=== PATIENT | female | born 1950 | race Caucasian/White ===

== ENCOUNTER 2017-02-18 19:02 | Inpatient (IN) | payer OTHER, MEDICARE ==
[~2017-02-18] VITALS: Ht 166.4 cm; Wt 49.4 kg
--- NOTE | 2017-02-18 19:02 | NUR ---
ARRIVAL TIME 1900 AND REPORTED LAST SEEN NORMAL 25 MINS AGO
--- NOTE | 2017-02-18 19:05 | ED NEURO DEFICIT/STROKE ---
History of Present Illness General Chief Complaint: Altered Mental Status Stated Complaint: STROKE ALERT Source: EMS Exam Limitations: clinical condition Vital Signs & Intake/Output Vital Signs & Intake/Output Vital Signs Date Time Temp Pulse Resp B/P B/P Pulse O2 O2 Flow FiO2 Mean Ox Delivery Rate 02/188 98.3 82 18 124/76 97 Nasal 2.0L Cannula 02/188 98.4 85 20 120/78 95 Nasal 2.0L Cannula 02/188 98.0 89 18 122/80 97 Nasal 2.0L Cannula 02/19 2148 98.3 85 18 122/78 97 Nasal 2.0L Cannula 02/18 2138 96 Nasal 2.0L Cannula 02/18 2133 98.3 95 20 128/76 96 Nasal 2.0L Cannula 02/18 2118 98.3 83 20 124/76 96 Nasal 2.0L Cannula 02/18 2103 98.7 91 20 130/80 95 Nasal 2.0L Cannula 02/19 2048 97.8 80 20 130/78 95 Nasal 2.0L Cannula 02/18 2033 97.6 80 20 128/76 97 Nasal 2.0L Cannula 02/18 2018 97.6 79 18 120/76 97 Nasal 2.0L Cannula 02/18 2003 98.2 83 18 128/76 97 Nasal 2.0L Cannula 02/18 1945 97.3 90 18 134/59 97 Nasal 2.0L Cannula 02/18 1915 97.7 103 20 149/89 95 Nasal Cannula Allergies Coded Allergies: NO KNOWN ALLERGIES (06/03/11) Reconcile Medications Albuterol Sulfate (Ventolin Hfa) 90 MCG HFA.AER.AD 2 PUF INH AD PRN RESPIRATORY (Reported) Valsartan (Diovan) 40 MG TABLET 1 TAB PO DAILY HEART/BP (Reported) Triage Nurses Notes Reviewed? yes Onset: Abrupt Duration: minute(s): Timing: single episode today Severity: severe New Weakness: RUE, RLE, right facial Vision Problem? No Glaucoma? No Impaired Ability: difficult to speak, difficult to stand, difficult to walk Baseline: alert, oriented x 3 Associated Symptoms: weakness HPI: 66-year-old woman presents with acute onset of right sided weakness. Per the medics, 15-20 minutes prior to arrival, she developed sudden onset of right- sided arm and leg weakness, right facial droop, and difficulty speaking. Her daughter called the medics immediately. Upon arrival, the medics noted the above symptoms. Of note, she was unable to move her right arm and leg and seem lethargic and had trouble speaking. There is no recent trauma, operations, or other precipitating events. (SARAHI KING,MISHA Chavis) Past History Travel History Traveled to [place] past 21 day No Medical History Any Pertinent Medical History? see below for history Cardiovascular: pacemaker Respiratory: COPD Surgical History Surgical History: non-contributory Psychosocial History Who do you live with Patient/Self What is your primary language Luxembourgish Family History Hx Contributory? No (MISHA NGUYEN MD) Review of Systems Review of Systems Constitutional: Reports: no symptoms. EENTM: Reports: no symptoms. Respiratory: Reports: no symptoms. Cardiovascular: Reports: no symptoms. GI: Reports: no symptoms. Genitourinary: Reports: no symptoms. Musculoskeletal: Reports: no symptoms. Skin: Reports: no symptoms. Neurological/Psychological: Reports: no symptoms. Hematologic/Endocrine: Reports: no symptoms. Immunologic/Allergic: Reports: no symptoms. All Other Systems: Reviewed and Negative (MISHA NGUYEN MD) Physical Exam Physical Exam General Appearance: moderate distress Head: atraumatic, normal appearance Eyes: Bilateral: normal appearance, PERRL, EOMI, other (left gaze preference). Ears, Nose, Throat: normal ENT inspection Neck: normal inspection, supple, full range of motion Respiratory: normal breath sounds, chest non-tender, no respiratory distress Cardiovascular: regular rate/rhythm Gastrointestinal: normal bowel sounds, soft, non-tender, no organomegaly Back: normal inspection, normal range of motion Cranial Nerves: right facial droop with significant dysarthria, partial left gaze preference Coordination/Gait: 0/5 strength on right arm/leg Motor/Sensory: no sensory deficit Reflexes: 0: bicep (R), knee (R). 1+: bicep (L), knee (L). Core Measures CVA/TIA Diagnosis: Yes NIH Stroke Scale: Total 18 Date Last Known Well: 02/18/17 Time Last Known Well: 1830 Neurological S/S of CVA: Difficulty Speaking, Facial Hemiparesis, Incoherent Speech, Right Hemiparesis, Slurred Speech, Weakness of Limb Symptom Start Date: 02/18/17 Comment: pt given tpa as per protocol Severe Sepsis Present: No Septic Shock Present: No Bedside Dysphagia Screen Bedside Swallow Eval Done: No Result of Evaluation: Fail (dysarthria.needs formal eval) (SARAHI KING,MISHA Chavis) Progress Differential Diagnosis: Faith's Palsy, intracranial Hem., intracranial mass/tumor , stroke, subarachnoid Hem. Plan of Care: Orders Procedure Date/time Status Patient Data 02/18 2306 Active Admit to inpatient 02/18 2202 Active [place], Insertion/Removal/Asses 02/18 1939 Active CULTURE,URINE 02/18 1939 Active URINALYSIS 02/18 1939 Complete Weight 02/18 1931 Active [place] Coma Scale 02/18 1929 Active Intake & Output 02/18 1911 Active NIH Stroke Scale 02/19 1908 Active TROPONIN LEVEL 02/18 1906 Complete PARTIAL THROMBOPLASTIN TIME 02/18 1906 Complete PROTHROMBIN TIME 02/18 1906 Complete COMPREHENSIVE METABOLIC PANEL 02/18 1906 Complete CBC WITHOUT DIFFERENTIAL 02/18 1906 Complete TYPE & SCREEN (NOT X-MATCH) 02/18 1906 Complete EKG 02/18 1905 Active Current Medications Sig/Suzie Start time Last Medication Dose Stop Time Status Admin Alteplase, See Dose BOLUS ONE 02/18 1930 CAN Recombinant Insts (1) 02/18 1931 (Activase 100 MG Inj) Alteplase, See Dose ONCE ONE 02/18 1930 CAN Recombinant Insts (2) 02/18 1931 (Activase 100 MG Inj) Dose Instructions: (1)Alteplase, Recombinant (Activase 100 MG Inj): Administer over one minute (2)Alteplase, Recombinant (Activase 100 MG Inj): Infuse over 60 minutes Laboratory Tests 02/18/171941: Urine Color YEL, Urine Clarity CLEAR, Urine pH 6.0, Ur Specific [place] 1.020, Urine Protein NEG, Urine Ketones TRACE H, Urine Nitrite NEG, Urine Bilirubin NEG, Urine Urobilinogen 0.2, Ur Leukocyte Esterase NEG, Ur Microscopic SEDIMENT EXAMINED, Urine RBC 1-3, Ur Epithelial Cells RARE, Urine Hemoglobin TRACE-INTACT , Urine Glucose NEG 02/18/171929: Anion Gap 9, Estimated GFR 45 L, BUN/Creatinine Ratio 10.0, Glucose 88, Calcium 8.6, Total Bilirubin 0.6, AST 23, ALT 34, Alkaline Phosphatase 131 H, Troponin I < 0.01, Total Protein 6.6, Albumin 4.1, Globulin 2.5, Albumin/Globulin Ratio 1.6, PT 10.6, INR 1.01, APTT 32, CBC w Diff NO MAN DIFF REQ, RBC 4.54, MCV 97.3, MCH 31.9 H, RDW 13.7, MPV 8.4, Gran % 57.7, Lymphocytes % 30.5, Monocytes % 8.7 , Eosinophils % 2.3, Basophils % 0.8, Absolute Granulocytes 3.0, Absolute Lymphocytes 1.6, Absolute Monocytes 0.5, Absolute Eosinophils 0.1, Absolute Basophils 0, PUBS MCHC 32.8 L Microbiology 02/18 1942 URINE ROUT: Urine Culture - RECD Diagnostic Imaging: Viewed by Me: Radiology Read, CT Scan. Discussed w/RAD: Radiology Read, CT Scan. Radiology Impression: head ct... no acute disease, no bleed, head/neck angiogram... no clot. CXR Impression: no acute abnormality, no infiltrates, normal size heart, normal mediastinum Initial ED EKG: paced rhythm Comments: PATIENT: MIRIAM BELTRAN PRESENT AGE: 66 PATIENT ACCOUNT NO: [id number] : 49 LOCATION: [facility] ORDERING PHYSICIAN: MISHA NGUYEN MD SERVICE DATE: 02/18/17 EXAM TYPE: CAT - CT HEAD WO IV CONTRAST EXAMINATION: CT HEAD WITHOUT CONTRAST CLINICAL INFORMATION: Stroke alert. Stroke symptoms. COMPARISON: None TECHNIQUE: Contiguous axial imaging was performed from the skull base to vertex without intravenous administration of contrast. DLP: 776 mGy-cm FINDINGS: The study is limited by patient motion. Some of the images were repeated. No intracranial hemorrhage. No mass effect or midline shift. Lim-white differentiation is maintained without evidence of acute large vessel territory ischemia. Ventricles and sulci are within normal limits for age. Globes and orbits are normal. Partial opacification of the sphenoid sinus. No acute acute sinusitis. Skull and calvarial soft tissues are normal. IMPRESSION: The study is degraded by patient motion. No acute intracranial pathology. This critical result was discussed with MISHA NGUYEN MD by telephone at 02/18/2017 7:23 PM and it was ascertained that the content and urgency of the report was understood at the time of direct communication. In discussion with Dr. Nguyen, the patient has dense right hemiparesis. There is preserved lim-white differentiation within the left middle cerebral artery territory. DICTATED BY: GLENDY GRIJALVA MD DATE/TIME DICTATED:02/18/171918 ARCHITECTURE CONSULTANT:TORO DATE/TIME TRANSCRIBED:02/18/171918 CONFIDENTIAL, DO NOT COPY WITHOUT APPROPRIATE AUTHORIZATION. <Electronically signed in Other Vendor System> SIGNED BY: GLENDY GRIJALVA MD 1930 PATIENT: MIRIAM BELTRAN PRESENT AGE: 66 PATIENT ACCOUNT NO: [id number] : 49 LOCATION: [facility] ORDERING PHYSICIAN: MISHA NGUYEN MD SERVICE DATE: 02/18/17 EXAM TYPE: CAT - CT HEAD ANGIOGRAM; CT NECK ANGIOGRAM EXAMINATION: CT ANGIOGRAM CAROTID - NECK AND BRAIN CLINICAL INFORMATION: Stroke. COMPARISON: CT head today TECHNIQUE: Test bolus sequences followed by intravenous administration 120 mL of Optiray 350. Helical imaging was performed in the axial plane from the mediastinum to the vertex. The data was processed at the aeronautical engineering technologist workstation for generation of MIP sequences. No off site 3-D images performed. Workstation. FINDINGS: Normal examination. The origins of the great vessels are normal. The proximal subclavian arteries are normal. The origin of the right common carotid artery is normal. The right common carotid artery, carotid bifurcation and internal carotid artery is normal. The left common carotid artery, carotid bifurcation and internal carotid artery is normal. The origins of the vertebral arteries are normal. The vertebral arteries, basilar artery and their branches are normal. The [place] and cerebral arteries are normal. The CT of the brain is normal. No abnormal enhancement. The soft tissues of the neck are normal. There is emphysematous changes of lung. There is mild multilevel degenerative spondylosis of cervical spine. Small focus of mucosal thickening in the posterior left sphenoid sinus. IMPRESSION: Normal CTA of the head and neck DICTATED BY: RENAE MANNING MD DATE/TIME DICTATED:02/18/172104 ARCHITECTURE CONSULTANT:TORO DATE/TIME TRANSCRIBED:02/18/172104 CONFIDENTIAL, DO NOT COPY WITHOUT APPROPRIATE AUTHORIZATION. <Electronically signed in Other Vendor System> SIGNED BY: RENAE MANNING MD 02/18/172119 (SARAHI KING,MISHA Chavis) Departure Departure Disposition: STILL A PATIENT Condition: Stable Clinical Impression Primary Impression: CVA (cerebral vascular accident) Referrals: RENAE PARIS MD (PCP/Family) Departure Forms: Customer Survey General Discharge Information Comments 02/18/17, 19:14pm.... pt directly to ct scan... discussed with dr. arevalo... if negative bleed, will push tpa, then get angiogram to evaluate for clot...if clot , then pt to be transported [facility] 02/18/17, 19:24... discussed with [place] radiologist... no acute bleed. no cva visible. Admission Note Spoke With: JJ GURROLA MD Documentation of Exam: Documentation of any treatments & extenuating circumstances including Concerns Regarding Discharge (functional status, medication knowledge or non-compliance, living conditions, etc.) that warrant an admission rather than observation: pt with dense right sided hemipareisis, c/w cva... no clot seen on angiogram... pt received tpa per protocol.... discussed at length with family... pt to be admitted to icu. (SARAHI KING,MISHA Chavis) Critical Care Note Critical Care Note Critical Care Time: 30-74 min (SARAHI KING,MISHA Chavis)
--- NOTE | 2017-02-18 19:15 | NUR ---
66 F BIBA STROKE ALERT WITH SUDDEN ONSET RIGHT SIDED FACIAL DROOP, RIGHT ARM/LEG WEAKNESS LAST SEEN NORMAL APPROX 1840. NIHSS 9 AT TIME OF ARRIVAL. ARRIVES AWAKE AND ALERT, PUPILS CONSTRICTED AND WITH SLURRED/GARBLED SPEECH. DEMONSTRATES POOR FOCAL CONTROL BUT PUPILS APPEAR 1MM, EQUAL AND REACTIVE. NORMOTENSIVE FOR EMS WITH PACED RATE 70'S. ABLE TO FOLLOW COMMANDS AND RESPOND WITH SLURRED ONE WORD ANSWERS. ARRIVES W PREHOSP #18G IV TO [facility]. NO MEDS LPC. PT IMMEDIATELY TO CT SCAN ON ARRIVAL AND MET BY THIS RN AND DR MCCLAIN FOR EVALUATION. GUIAIC NEGATIVE ON RECTAL EXAM, SKIN APPEARS INTACT. WITHDRAWS FROM NOXIOUS STIMULI.
--- NOTE | 2017-02-18 19:31 | CT SCAN REPORT ---
EXAMINATION: CT HEAD WITHOUT CONTRAST CLINICAL INFORMATION: Stroke alert. Stroke symptoms. COMPARISON: None TECHNIQUE: Contiguous axial imaging was performed from the skull base to vertex without intravenous administration of contrast. DLP: 776 mGy-cm FINDINGS: The study is limited by patient motion. Some of the images were repeated. No intracranial hemorrhage. No mass effect or midline shift. Lim-white differentiation is maintained without evidence of acute large vessel territory ischemia. Ventricles and sulci are within normal limits for age. Globes and orbits are normal. Partial opacification of the sphenoid sinus. No acute acute sinusitis. Skull and calvarial soft tissues are normal. IMPRESSION: The study is degraded by patient motion. No acute intracranial pathology. This critical result was discussed with MISHA NGUYEN MD by telephone at 02/18/2017 7:23 PM and it was ascertained that the content and urgency of the report was understood at the time of direct communication. In discussion with Dr. Nguyen, the patient has dense right hemiparesis. There is preserved lim-white differentiation within the left middle cerebral artery territory.
--- NOTE | 2017-02-18 19:46 | NUR ---
URINE SAMPLE SENT TO LAB
[2017-02-18 19:48] LABS: ABSOLUTE BASOPHIL COUNT 0 /CUMM (0.0-0.2); ABSOLUTE EOSINOPHIL COUNT 0.1 /CUMM (0.0-0.7); ABSOLUTE LYMPH COUNT 1.6 /CUMM (1.2-3.4); ABSOLUTE MONOCYTE COUNT 0.5 /CUMM (0.10-0.60); BASOPHIL % 0.8 % (0.0-2.0); EOSINOPHIL % 2.3 % (0-5); GRANULOCYTE % 57.7 % (42.2-75.2); HEMATOCRIT 44.2 % (37-47); MEAN CORPUSCULAR HGB 31.9 PG (27.0-31.0); MEAN CORPUSCULAR HGB CONC 32.8 G/DL (33.0-37.0); MEAN CORPUSCULAR VOLUME 97.3 FL (81.0-99.0); MEAN PLATELET VOLUME 8.4 FL (7.4-10.4); PLATELET COUNT 185 /CUMM (130-400); RBC DISTRIBUTION WIDTH 13.7 % (11.5-14.5); RED BLOOD CELL CT 4.54 /CUMM (4.20-5.40); WHITE BLOOD CELL COUNT 5.3 /CUMM (4.8-10.8)
--- NOTE | 2017-02-18 19:48 | NUR ---
TPA BOLUS INITIATED.
--- NOTE | 2017-02-18 19:49 | NUR ---
TPA DRIP INITIATED PER EMAR.
[2017-02-18 19:55] LABS: PT 10.6 SEC (9.4-12.5); PTT 32 SEC (25-37)
--- NOTE | 2017-02-18 19:58 | NUR ---
PORTABLE XRAY AT BEDSIDE.
--- NOTE | 2017-02-18 20:14 | RADIOLOGY REPORT ---
EXAMINATION: XR PORTABLE CHEST CLINICAL INFORMATION: Stroke alert COMPARISON: 01/23/2014 TECHNIQUE: Portable frontal view of the chest was obtained. FINDINGS: Lungs are hyperexpanded but clear. No focal consolidation or mass. No pleural effusion or pneumothorax. Normal pulmonary vascularity. New 2-lead pacemaker seen with contiguous intact leads terminating over the expected location of the right atrium and right ventricle. Normal heart size. Osteopenia and degenerative changes of the spine and shoulders. IMPRESSION: No acute pulmonary disease.
--- NOTE | 2017-02-18 20:33 | NUR ---
PT ANSWERS CORRECTLY WHEN ASKED HER AGE, PT ALSO STATES HER DATE OF . PT IS ABLE TO FOLLOW COMMANDS TO OPEN/CLOSE EYES. PT ABLE TO OPEN/CLOSE LEFT FIST, NO MOVEMENT OF RIGHT UPPER EXTREMITY. PT FOLLOWS COMMAND TO LIFT LEFT LEG, NO MOVEMENT OF RIGHT LEG. PT ARTICULATES THE WORDS "MAMA", "TIP TOP" AND "BASEBALL".
--- NOTE | 2017-02-18 20:36 | NUR ---
PT TO CAT SCAN WITH THIS RN AND RN LUIS A.
[2017-02-18] MEDS ORDERED: DIOVAN40 MG PO (20:57)
[2017-02-18] MEDS ORDERED: VENTOLIN HFA18 GM INH (20:58)
--- NOTE | 2017-02-18 21:20 | CT SCAN REPORT ---
EXAMINATION: CT ANGIOGRAM CAROTID - NECK AND BRAIN CLINICAL INFORMATION: Stroke. COMPARISON: CT head today TECHNIQUE: Test bolus sequences followed by intravenous administration 120 mL of Optiray 350. Helical imaging was performed in the axial plane from the mediastinum to the vertex. The data was processed at the special procedure technologist workstation for generation of MIP sequences. No off site 3-D images performed. Workstation. FINDINGS: Normal examination. The origins of the great vessels are normal. The proximal subclavian arteries are normal. The origin of the right common carotid artery is normal. The right common carotid artery, carotid bifurcation and internal carotid artery is normal. The left common carotid artery, carotid bifurcation and internal carotid artery is normal. The origins of the vertebral arteries are normal. The vertebral arteries, basilar artery and their branches are normal. The [place] and cerebral arteries are normal. The CT of the brain is normal. No abnormal enhancement. The soft tissues of the neck are normal. There is emphysematous changes of lung. There is mild multilevel degenerative spondylosis of cervical spine. Small focus of mucosal thickening in the posterior left sphenoid sinus. IMPRESSION: Normal CTA of the head and neck
--- NOTE | 2017-02-18 21:32 | NUR ---
DR MCCLAIN IN TO EVAL PATIENT.
--- NOTE | 2017-02-18 21:33 | NUR ---
PT EXPERIENCING AN INCREASE IN TIREDNESS. WHEN ASKED AGE AND MONTH PT UNABLE TO ARTICULATE INTELLIGIBLE WORDS. PT CONTINUES TO FOLLOW COMMANDS TO OPEN/ CLOSE EYES. NO MOVEMENT OF RIGHT UPPER EXTREMITY AND RIGHT LOWER EXTREMITY. PT ABLE TO LIFT LEFT ARM WITH NO DRIFT NOTED. PT ALSO ABLE TO LIFT LEFT LEG.
--- NOTE | 2017-02-18 22:29 | NUR ---
HOUSESTAFF AT BEDSIDE FOR EVAL.
--- NOTE | 2017-02-18 23:34 | NUR ---
ASHANTI DARDEN'S DAUGHTER CAN BE CONTACTED AT [phone].
[2017-02-19] MEDS ORDERED: SYMBICORT 80-10.2 GM INH (00:08)
--- NOTE | 2017-02-19 00:44 | NUR ---
RESP AT BEDSIDE
--- NOTE | 2017-02-19 00:45 | History & Physical ---
VANESSASPRINGFIELD 02/19/17 0033: General Information and HPI MD Statement: I have seen and personally examined MIRIAM BELTRAN and documented this H&P. The patient is a 66 year old F who presented with a patient stated chief complaint of [right upper limb and lower limb weakness and right facial droop.]. History of Present Illness: 66 YO F smoker(1pack/day), PMH of COPD(not on home oxygen), rheumatic fever(in childhood), pacemaker in October 2014(possibly due to heart block), right knee surgery(arthroscopic) and fibroid uterus surgery presented to ED today with chief complaint of weakness of right side of body along with right facial droop. Information was obtained from patient's daughter, according to patient's daughter her mother was all right until this evening around 6:40 PM when she was washing dishes in the kitchen and the daughter heard and her mother is calling for an when she went to see her mother she was sitting in a chair and couldn't speak. The daughter noticed right facial droop and also noticed that her mother is trying to speak and trying totell something to her but she couldn't. Her daughter called 911 right away and brought to patient to ED. In the ED the patient was drowsy and isn't able to onset of the questions and was not able to move her right arm and leg. On rectal signs were stable and indeed patient was given 2 L of oxygen, after consulting with Dr. Guajardo patient received TPA. On physical examination the patient she was lying in bed, in mild distress, he was alert and oriented to person but couldn't articulate well as. She was able to understand us but couldn't articulate well. According to her daughter her mother was able to do all her IADLS and ADLs. At home she used to take blood pressure medication and inhaler for COPD. The daughter denied any chest pain, palpitation, nausea, vomiting, any previous history of TIA stroke dizziness, fever and chills. She is on 2 L of oxygen Heart mild distress Right-sided facial droop, bilateral constricted pupil minimally reactive to light CVS: R/R/R, S1 plus S2 +0 Lungs:CTA Abdomen: Normal bowel sounds, soft, nontender Neurological examination: Motor aphasia, able to follow commands, bilateral facial sensations intact, able to close both eyes, right facial droop, decreased power of right shoulder she was not able to show the tongue completely, passed bedside swallowing evaluation. Power 1/ 5 in right, 1/5 in right leg, equal vocal Babinski sign on the right side and negative on the left side. Bilateral pedal edema grade 1 CT scan of the head didn't show any bleed or visual ischemia. CT scan of the neck and and post CPAP didn't show any stenosis or bleeding X-ray chest didn't show any acute pathology. Creatinine 1.2, bicarbonate 31, ALP 131, troponin negative NIH score on arrival was 17 EKG single ventirculat paced rhythm, and apparently, Heart rate 104 Allergies/Medications Allergies: Coded Allergies: NO KNOWN ALLERGIES (06/03/11) Home Med list Albuterol Sulfate (Ventolin Hfa) 90 MCG HFA.AER.AD 2 PUF INH AD PRN RESPIRATORY (Reported) Budesonide/Formoterol Fumarate (Symbicort 80-4.5 Mcg Inhaler) 80 MCG-4.5 MCG/ ACTUATION HFA.AER.AD 2 PUF INH BID COPD (Reported) Valsartan (Diovan) 40 MG TABLET 1 TAB PO DAILY HEART/BP (Reported) Past History Travel History Traveled to [place] past 21 day No Medical History Cardiovascular: pacemaker Respiratory: COPD Surgical History Surgical History: non-contributory Past Family/Social History Psychosocial History ETOH Use: denies use Illicit Drug Use: denies illicit drug use Review of Systems Review of Systems Constitutional: Reports: no symptoms. EENTM: Reports: no symptoms. Cardiovascular: Reports: no symptoms. Respiratory: Reports: no symptoms. GI: Reports: no symptoms. Genitourinary: Reports: no symptoms. Musculoskeletal: Reports: no symptoms. Skin: Reports: no symptoms. Neurological/Psychological: Reports: unable to move lower ext, unable to move upper ext, weakness. Hematologic/Endocrine: Reports: no symptoms. Immunologic/Allergic: Reports: no symptoms. Exam & Diagnostic Data Last 24 Hrs of Vital Signs/I&O Vital Signs Date Time Temp Pulse Resp B/P B/P Pulse O2 O2 Flow FiO2 Mean Ox Delivery Rate 02/19 0035 97 Nasal 2.0L Cannula 02/19 0012 97.7 79 22 112/80 97 Nasal 2.0L Cannula 02/18 2348 98.1 88 18 118/80 97 Nasal 2.0L Cannula 02/18 2318 98.3 82 18 124/76 97 Nasal 2.0L Cannula 02/19 2248 98.4 85 20 120/78 95 Nasal 2.0L Cannula 02/18 2218 98.0 89 18 122/80 97 Nasal 2.0L Cannula 02/19 2148 98.3 85 18 122/78 97 Nasal 2.0L Cannula 02/18 2138 96 Nasal 2.0L Cannula 02/18 2133 98.3 95 20 128/76 96 Nasal 2.0L Cannula 02/18 2118 98.3 83 20 124/76 96 Nasal 2.0L Cannula 02/18 2103 98.7 91 20 130/80 95 Nasal 2.0L Cannula 02/19 2048 97.8 80 20 130/78 95 Nasal 2.0L Cannula 02/18 2033 97.6 80 20 128/76 97 Nasal 2.0L Cannula 02/18 2018 97.6 79 18 120/76 97 Nasal 2.0L Cannula 02/18 2003 98.2 83 18 128/76 97 Nasal 2.0L Cannula 02/18 1945 97.3 90 18 134/59 97 Nasal 2.0L Cannula 02/18 1915 97.7 103 20 149/89 95 Nasal Cannula Intake & Output 02/19 0800 02/19 0000 02/18 1600 Intake Total Output Total Balance Patient 103 lb Weight Weight Bed scale Measurement Method Physical Exam General Appearance Mild Distress Skin No Rashes Skin Temp/Moisture Exam: Warm/Dry HEENT Atraumatic, PERRLA, EOMI Neck Supple Cardiovascular Regular Rate Lungs Clear to Auscultation, Normal Air Movement Abdomen Normal Bowel Sounds, Soft Assessment/Plan Assessment: ASSESSMENT/PLAN: 66 YO F smoker(1pack/day), PMH of COPD(not on home oxygen), rheumatic fever(in childhood), pacemaker in October 2014(possibly due to heart block), right knee surgery(arthroscopic) and fibroid uterus surgery presented to ED today with chief complaint of weakness of right side of body along with right facial droop.On physical examination the patient she was lying in bed, in mild distress , he was alert and oriented to person but couldn't articulate well as. She was able to understand us but couldn't articulate well. According to her daughter her mother was able to do all her IADLS and ADLs. So we are going to assess her for:- Ischemic stroke post TPA Admit in ICU Vitals after every hour Nothing by mouth Forde's theter -Swallowing evaluation to prevent aspiration - PT/OT in the morning to start strokr rehabilitation to improve the clinical outcome. -Echo in the morning to rule out thrombus in the heart -Systolic blood pressure less than 180 mmHG to prevent cerebral bleed -EKG and troponin at 2am to rule out ACS -CBC, EKG, coagulation studies, BEP at 12/24/36 hours post TPA -check Lipid panel and start the patient on high dose statin -CT head 24 hours after TPA to rule out bleed. -MRI head (pacemaker info is in the chart) to see the infarct area. COPD Continue oxygen Continue Symbicort TRC nebulized As Ranked By This Provider Problem List: 1. CVA (cerebral vascular accident) Core Measures/Miscellaneous Acute Coronary Syndrome ACS Diagnosis: No Cerebrovascular Accident CVA/TIA Diagnosis: Yes NIH Stroke Scale: Total 13 Date Last Known Well: 02/18/17 Time Last Known Well: 1829 Neurological S/S of CVA: Difficulty Speaking, Facial Hemiparesis, Incoherent Speech, Right Hemiparesis, Slurred Speech, Weakness of Limb Symptom Start Date: 02/18/17 Bedside Swallow Eval Done: Yes Result of Evaluation: Fail (dysarthria.needs formal eval) Congestive Heart Failure CHF Diagnosis: No VTE (View Protocol) VTE Risk Factors: Age > 40, Smoking [facility] prophylaxis d/t: No contraindications No VTE Pharm Prophylaxis d/t: Medical contraindication VTE Diagnosis: No VTE Type: NONE VTE Confirmed by (Test): NONE Sepsis (View Protocol) Severe Sepsis Present: No Septic Shock Septic Shock Present: No Miscellaneous Documentation Attending Case Discussed With: JJ GURROLA MD Primary Care Physician: ERNAE PARIS MD Patient sees these Specialists Dr. Humberto Wise Level of Patient Care: Critical Care (CRI) Consults Needed: Consulting Specialty: Neurology Consulting Physician: Dr. Guajardo Reason for Consult: FESTUS Mace 02/19/17 0105: Past Family/Social History Family History Relations & Conditions if any DAUGHTER (malignant hyperthermia). Functional Ability ADLs Independent: dressing, eating, toileting, bathing. Ambulation: independent IADLs Independent: shopping, housework, finances, food prep, telephone, transportation , medication admin. Employment History Employment Retired Resident Review Statement Resident Statement: examined this patient, discussed with materials intern, agreed with materials intern, discussed with family, reviewed EMR data (avail), amended to note Other Findings: 66-year-old lady with past medical history of COPD(NOT on oxygen at home), smoker 1 pack a day, possible heart block status post pacemaker, who brought to the hospital with chief complaint of a seizure and right-sided weakness. Most of the information was obtained from patient's daughter states the patient was unable to articulate her words accurately. Around 6:40 PM patient's daughter noticed that the patient is unable to talk and sitting on the chair and not able to move her right side,with right-sided facial droop 911 was called and patient was brought here. In the ED patient was drowsy and unable to answer to question and move her right side of the body,With left-sided gaze. Vital signs were stable except O2 saturation 99% which resolved while putting the patient on 2 L oxygen. Initial CAT scan did not show any bleeding. After consulting with Dr. Guajardo patient received TPA. upon visiting the patient, Patient was able to answer the questions intermittently,However most of her words were uncomprehensible. Patient was alert and oriented to person. Looks tired and mildly distressed. Review of the system with daughter did not reveal any history of CVA, recent chest pain, nausea, vomiting, dizziness, palpitations. Before this incident patient was able to do all of her IADLS and ADL's. Apparently compliant with her blood pressure medication. Vital signs were stable(on 2 L oxygen) alert mild distress HEENT right sided facail droop, bilateral constricted pupil minimally reactive to Lights, left lataral gaze Cardiovascular Regular Rate, Normal S1, Normal S2 Lungs Clear to Auscultation, Normal Air Movement Abdomen Normal Bowel Sounds, Soft, No Tenderness, Neurological partial motor aphasia, able to follow commands, no decreased sensation in the face, able to close both of her e able to follow, and fairly, right-sided facial droop, decrease strenght of the right shoulder, does not cooperate to open her mouth or show her tongue completely, passes swallow evaluation at bedside, right upper extremity strength 1-2 out of 5, right lower extremity strength 1-2 out of 5, negative pelvis contests on the left side and equivocal test on the right side, Extremities bilateral pedal edema up to one third of the shins, Mild swelling of the right knee, non tender (History of right knee osteoarthritis with arthroscopy long time ago) CT scan of the head did not show any bleeding or visible ischemia, CT a of the neck and the head post CPAP did not show any stenosis or bleeding. CXR showed not acute pathology cr 1.2, HCO3 31, ALP 131, trops neg NIH score upon arrival was 17 EKG single ventirculat paced rhythm, and apparently, Heart rate 104 Assessment and plan #Ischemic CVA post TPA -Admit to ICU - vital signs every hour -forde/ NPO /swallow eval /PT OT in AM -goal SBP less than 180 mmhg -Echo cardiogram in AM -neuro consult in a.m. -ekg and troponing 2 am -Per TPA protocol CBC, EKG, coagulation studies, BEP at 12/24/36 hours post TPA -check Lipid panel and start the patient on high dose statin -CT head 24 hours after TPA -MRI head (pacemaker info is in the chart) #COPD -Continue O2 therapy, TRC nebs, continue Symbicort #Full code, Tylenol for pain, NPO, DVT prophylaxis is JJ WISE 02/19/17 0135: Attending MD Review Statement Attending Statement Attending MD Statement: examined this patient, discuss w/resident/PA/TECHNICAL SPECIALIST [employer]ET[employer], agreed w/resident/PA/TECHNICAL SPECIALIST [employer], reviewed EMR data (avail), reviewed images, amended to note Attending Assessment/Plan: CC: right sided weakness PMH : HTN, s/p pacemaker, rheumatic fever at the age of 14 years, smoker Patient was brought in by family for acute onset of right sided weakness. As per the EMS, she developed sudden onset of right-sided arm and leg weakness, right sided facial droop, and difficulty speaking, 20 minutes prior to arrival, while she was doing dishes. Daughter who was in the other room, came back to check on her mother when she found her mother on a chair with weakness. Then she called the EMS. There is no recent trauma, operations, or other precipitating events. Hx is limited as patient is aphasic, ROS is limited. Vitals: T max 98.7, HR on arrival 103, improved to 80s, RR 18-20, blood pressure 149/89 upon arrival stabilized around 120s/75 saturating 96% on 2 L nasal cannula On exam: Alert, partially aphasic, not oriented, mild respiratory distress, no JVD, right-sided gaze palsy, right facial droop, 2/5 strength RUL and RLL, reflexes +3 on right side, up growing plantars left-sided strength intact. Pupils equal 2 mm bilaterally reactive. cooperative, neck supple, mucosa dry, no dependent edema, no obvious skin rashes or inflammation CVS: S1-S2, RRR pacemaker left side. RS: Bilateral extensive wheezing. Abdomen: Soft, NT, ND, bowel sounds present. Labs: CBC unremarkable, sodium 140, potassium 4.8, chloride 100, bicarbonate 31, BUN 12, creatinine 1.2, and ag 9, glucose 88, calcium 8.6, AST 23, ALT 34, bilirubin 0.6, alkaline phosphatase 131, troponin less than 0.01, albumin 4.1, INR 1.01 UA unremarkable U tox pending CT chest head: The study is degraded by patient motion. No acute intracranial pathology. CXR: No acute pulmonary disease. CT HEAD ANGIOGRAM; CT NECK ANGIOGRAM: Normal CTA of the head and neck EKG: Ventricular paced rhythm A and P 66-year-old female with current smoker and history of hypertension S/P pacemaker (unclear etiology), was brought in by family for acute onset of right sided weakness. Symptoms 20 minutes prior to arrival to ER with right-sided arm and leg weakness, right sided facial droop, and difficulty speaking. NIH stroke scale was 17. Intermediate CT head was obtained, which was negative for bleed. Patient was given TPA. Neurologist was called from ER who suggested to the evaluate with CTA head and neck after TPA, if there is clot then transferred to [place]. CTA was unremarkable as mentioned above. After TPA NIH stroke scale improved to 15. Patient being admitted to ICU for further management of acute ischemic stroke S/P TPA. + Right-sided hemiparalysis secondary to acute ischemic stroke + History of HTN, smoking + s/p pacemaker ventricular paced rhythm - Admit to ICU - Follow TPA protocol for blood pressure monitoring every 15 hour for first 2 hours then every 30 minutes for next 6 hours followed by hourly - Continue gentle IV hydration, if blood pressure trending up DC IV fluids, when necessary labetalol if required : Maintain blood pressure below 180/105 - Hold off aspirin for now - Neurochecks every 2 hours - If any deterioration in neurological status, stat CT scan - Add lipid profile but the sample in lab - Bedside swallow evaluation and formal official swallow evaluation - Nothing by mouth, continue Forde catheter, watch for any bleeding - Neurologic consult in AM - 2-D echocardiogram in a.m. - Continue telemetry monitoring - Scheduled and when necessary nebulization with albuterol - ? MRI in a.m., according to neurology opinion - Accu-Cheks, check hemoglobin A1c - OT PT evaluation in a.m. - Trend EKG and troponin - Chest x-ray repeat in a.m. to rule out any aspiration - Obtain record from the cardiology office regarding pacemaker - DVT prophylaxis with Alps - Adequate pain control
--- NOTE | 2017-02-19 00:55 | NUR ---
PT REMAINS ALERT. PT ABLE TO FOLLOW COMMANDS TO OPEN/CLOSE EYES AND OPEN/CLOSE BOTH RIGHT AND LEFT HAND. PT ABLE TO LIFT LEFT ARM WITHOUT ANY DRIFT. PT UNABLE TO LIFT RIGHT ARM. PT LIFTS LEFT AND RIGHT LEG. PT UNABLE TO ARTICULATE INTELLIGIBLE WORDS AT THIS TIME.
--- NOTE | 2017-02-19 01:22 | NUR ---
REPORT GIVEN TO SUSY OCAMPO ON CRITICAL CARE.
--- NOTE | 2017-02-19 01:35 | Admission Certification ---
Admission Certification Certification Statement - As attending physician, I certify that at the time of - admission, based on clinical presentation, severity of - symptoms, need for further diagnostic testing and - therapeutic interventions, and risk of adverse outcomes - without in-hospital treatment, in my clinical assessment, - this patient requires an acute hospital stay for a minimum - of two nights or longer. I have also considered psychsocial - factors such as support system, advanced age, financial - issues, cognitive issues, and failed out-patient treatments, - past re-admission history, safety of patient, and lack of - compliance as applicable. Specific rationale supporting this admission is: acute CVA
--- NOTE | 2017-02-19 01:42 | NUR ---
PT GOING TO ROOM 108
--- NOTE | 2017-02-19 03:48 | NUR ---
PT RECEIVED FROM ER AWAKE, NORIEGA EXCEPT R ARM, ABLE TO DO WEAK HAND GRASP, R LEG WEAKER THAN LEFT,CELINA JONES GARBLED AT TIMES, ABLE TO SAY NAME AND BIRTHDATE.SKIN INTACT, FLORES IN PLACE.NASAL O2 AT 2L MONITOR PACING
--- NOTE | 2017-02-19 07:33 | NUR ---
PT EASILY AWAKENED ANSWERS SOME QUESTIONS APPROPRIATELY BUT ONLY SPEAKS CLEARLY WITH ON WORD ANSWER, IF SHE TRIES A SENTENCE HER SPEECH IS GARBLED, CONFUSED TO DATE AND SOME QUESTIONS. MOVING ALL EXTREMITIES TO COMMAND R SIDE WEAKNESS. DENIES PAIN. NASAL O2 AT 2LO2 SAT 97-98% MONITOR PACING
[2017-02-19 08:00] VITALS: BP 108/60
--- NOTE | 2017-02-19 08:09 | NUR ---
Physical Therapy - Patient received TPA bolus 12 hours ago in the ED. Will attempt to mobilize the patient after 24 hours of receiving the TPA and the CT is negative for a bleed. Will follow with PT evaluation once appropriate for mobilization.
--- NOTE | 2017-02-19 08:26 | Cons- CRCU ---
ZACHERY KING,[facility] 02/19/17 0825: General Information and HPI Consulting Request Date of Consult: 02/19/17 Requested By: MD BHAVYA GURROLA Reason for Consult: s/p tpa for CVA Source of Information: patient, family Exam Limitations: no limitations History of Present Illness: This is a 66-year-old lady with past medical history of COPD(NOT on oxygen at home), smoker 1 pack a day, rheumatic fever during childhood, possible heart block status post pacemaker, was BIBA with acute onset of right isded weakness, right facial droop and dysarthia. Pt was noted to still have the right side focal neurological deficits during ED evaluation, rcvd tpa (was well tithin the window). Pt was the then transferred to ICU for post tpa stroke management. Allergies/Medications Allergies: Coded Allergies: NO KNOWN ALLERGIES (06/03/11) Home Med List: Albuterol Sulfate (Ventolin Hfa) 90 MCG HFA.AER.AD 2 PUF INH AD PRN RESPIRATORY (Reported) Budesonide/Formoterol Fumarate (Symbicort 80-4.5 Mcg Inhaler) 80 MCG-4.5 MCG/ ACTUATION HFA.AER.AD 2 PUF INH BID COPD (Reported) Valsartan (Diovan) 40 MG TABLET 1 TAB PO DAILY HEART/BP (Reported) Review of Systems Review of Systems Constitutional: Reports: see HPI. Past History Travel History Traveled to [place] past 21 day No Medical History Cardiovascular: pacemaker Respiratory: COPD Surgical History Surgical History: non-contributory Family History Relations & Conditions If Any: DAUGHTER (malignant hyperthermia). Psychosocial History Smoking Status: Current Everyday Smoker ETOH Use: denies use Illicit Drug Use: denies illicit drug use Functional Ability ADLs Independent: dressing, eating, toileting, bathing. Ambulation: independent IADLs Independent: shopping, housework, finances, food prep, telephone, transportation , medication admin. Employment History Employment: Retired Exam & Diagnostic Data Last 24 Hrs of Vital Signs/I&O Vital Signs Date Time Temp Pulse Resp B/P B/P Pulse O2 O2 Flow FiO2 Mean Ox Delivery Rate 02/19 1200 99 Nasal 1.0L Cannula 02/19 0830 Nasal 2.0L Cannula 02/19 0817 96 Nasal 2.0L Cannula 02/19 0800 96.9 73 15 108/60 97 Nasal 2.0L Cannula 02/19 0800 95 Nasal 2.0L Cannula 02/19 0400 97 Nasal 2.0L Cannula 02/19 0200 96 Nasal 2.0L Cannula 02/19 0118 97.2 74 20 110/78 97 Nasal 2.0L Cannula 02/19 0048 97.7 77 20 110/68 97 Nasal 2.0L Cannula 02/19 0035 97 Nasal 2.0L Cannula 02/19 0012 97.7 79 22 112/80 97 Nasal 2.0L Cannula 02/18 2348 98.1 88 18 118/80 97 Nasal 2.0L Cannula 02/18 2318 98.3 82 18 124/76 97 Nasal 2.0L Cannula 02/18 2248 98.4 85 20 120/78 95 Nasal 2.0L Cannula 02/18 2218 98.0 89 18 122/80 97 Nasal 2.0L Cannula 02/18 2148 98.3 85 18 122/78 97 Nasal 2.0L Cannula 02/18 2138 96 Nasal 2.0L Cannula 02/18 2133 98.3 95 20 128/76 96 Nasal 2.0L Cannula 02/18 2118 98.3 83 20 124/76 96 Nasal 2.0L Cannula 02/18 2103 98.7 91 20 130/80 95 Nasal 2.0L Cannula 02/19 2048 97.8 80 20 130/78 95 Nasal 2.0L Cannula 02/18 2033 97.6 80 20 128/76 97 Nasal 2.0L Cannula 02/18 2018 97.6 79 18 120/76 97 Nasal 2.0L Cannula 02/18 2003 98.2 83 18 128/76 97 Nasal 2.0L Cannula 02/18 194 97.3 90 18 134/59 97 Nasal 2.0L Cannula 02/18 191 97.7 103 20 149/89 95 Nasal Cannula Intake & Output 02/19 1600 02/19 0800 02/19 0000 Intake Total 375 Output Total 1010 Balance -635 Intake, IV 375 Output, Urine 1010 Patient 50.434 kg 49.895 kg 46.5 kg Weight Weight Bed scale Bed scale Measurement Method Physical Exam General Appearance: alert, awake Head: atraumatic, normal appearance Cardiovascular: regular rate/rhythm Extremities: normal capillary refill, normal range of motion, no edema Neurologic/Psych: awake, alert, oriented x 3, right facial droop noted. moderate dysarthia noted, however improved compared to pre tpa (daughter confirmed the interval changes). R UE strength 2/5, compared to 5/5 on left side. Left LE strength 3/5 compared to 5/5 on left side. Sensation is intact on facial areas and u/l EXTREMITIES B/L. Last 48 Hrs of Labs/Angel: Laboratory Tests 02/19/17 0810: Urinalysis LIGHT H, Urine Color YEL, Urine Clarity HAZY H, Urine pH 6.0, Ur Specific Weld 1.015, Urine Protein TRACE H, Urine Ketones NEG, Urine Nitrite NEG, Urine Bilirubin NEG, Urine Urobilinogen 0.2, Ur Leukocyte Esterase NEG, Ur Microscopic SEDIMENT EXAMINED, Urine RBC 50-75 H, Urine WBC RARE, Ur Epithelial Cells RARE, Urine Mucus RARE, Urine Hemoglobin LARGE H, Urine Glucose NEG 02/19/17 0800: Anion Gap 8, Estimated GFR > 60, Glucose 83, Calcium 8.3 L, Phosphorus 4.6 H, Magnesium 2.0, Total Bilirubin 0.7, AST 20, ALT 36, Albumin 3.7, TSH Pending, PT 10.9, INR 1.04, APTT 29, CBC w Diff NO MAN DIFF REQ, RBC 4.28, MCV 97.9, MCH 32.4 H, RDW 13.7, MPV 8.7, Gran % 66.1, Lymphocytes % 23.6, Monocytes % 7.4, Eosinophils % 2.4, Basophils % 0.5, Absolute Granulocytes 3.4, Absolute Lymphocytes 1.2, Absolute Monocytes 0.4, Absolute Eosinophils 0.1, Absolute Basophils 0, PUBS MCHC 33.1 02/19/17 0248: Troponin I 0.02 02/18/17 1942: Urine Opiates Screen < 100.00, Methadone Screen < 40, Barbiturate Screen < 60, Ur Phencyclidine Scrn < 6.00, Amphetamines Screen < 100, U Benzodiazepines Scrn < 85, Urine Cocaine Screen < 50, Urine Cannabis Screen < 5.00, Urine Color YEL, Urine Clarity CLEAR, Urine pH 6.0, Ur Specific Weld 1.020, Urine Protein NEG, Urine Ketones TRACE H, Urine Nitrite NEG, Urine Bilirubin NEG, Urine Urobilinogen 0.2, Ur Leukocyte Esterase NEG, Ur Microscopic SEDIMENT EXAMINED, Urine RBC 1-3, Ur Epithelial Cells RARE, Urine Hemoglobin TRACE-INTACT, Urine Glucose NEG 02/18/17 1930: Anion Gap 9, Estimated GFR 45 L, BUN/Creatinine Ratio 10.0, Glucose 88, Calcium 8.6, Total Bilirubin 0.6, AST 23, ALT 34, Alkaline Phosphatase 131 H, Troponin I < 0.01, Total Protein 6.6, Albumin 4.1, Globulin 2.5, Albumin/Globulin Ratio 1.6, Triglycerides 64, Cholesterol 208 H, LDL Cholesterol, Calc 100, HDL Cholesterol 96 H, Cholesterol/HDL Ratio 2, PT 10.6, INR 1.01, APTT 32, CBC w Diff NO MAN DIFF REQ, RBC 4.54, MCV 97.3, MCH 31.9 H, RDW 13.7, MPV 8.4, Gran % 57.7, Lymphocytes % 30.5, Monocytes % 8.7, Eosinophils % 2.3, Basophils % 0.8, Absolute Granulocytes 3.0, Absolute Lymphocytes 1.6, Absolute Monocytes 0.5, Absolute Eosinophils 0.1, Absolute Basophils 0, PUBS MCHC 32.8 L Diagnostic Data EKG Results Ventricular paced rythm Other Results SERVICE DATE: 02/18/17 EXAM TYPE: CAT - CT HEAD WO IV CONTRAST EXAMINATION: CT HEAD WITHOUT CONTRAST CLINICAL INFORMATION: Stroke alert. Stroke symptoms. COMPARISON: None TECHNIQUE: Contiguous axial imaging was performed from the skull base to vertex without intravenous administration of contrast. DLP: 776 mGy-cm FINDINGS: The study is limited by patient motion. Some of the images were repeated. No intracranial hemorrhage. No mass effect or midline shift. Ilm-white differentiation is maintained without evidence of acute large vessel territory ischemia. Ventricles and sulci are within normal limits for age. Globes and orbits are normal. Partial opacification of the sphenoid sinus. No acute acute sinusitis. Skull and calvarial soft tissues are normal. IMPRESSION: The study is degraded by patient motion. No acute intracranial pathology. This critical result was discussed with MISHA NGUYEN MD by telephone at 02/18/2017 7:23 PM and it was ascertained that the content and urgency of the report was understood at the time of direct communication. In discussion with Dr. Nguyen, the patient has dense right hemiparesis. There is preserved lim-white differentiation within the left middle cerebral artery territory. DICTATED BY: GLENDY GRIJALVA MD DATE/TIME DICTATED:02/18/171918 EDGE BEADER:TETE DATE/TIME TRANSCRIBED:02/18/171918 CONFIDENTIAL, DO NOT COPY WITHOUT APPROPRIATE AUTHORIZATION. <Electronically signed in Other Vendor System> SIGNED BY: GLENDY GRIJALVA MD 1930 PATIENT: MIRIAM BELTRAN PRESENT AGE: 66 PATIENT ACCOUNT NO: [id number] : 49 LOCATION: [facility] ORDERING PHYSICIAN: MISHA NGUYEN MD SERVICE DATE: 02/18/17 EXAM TYPE: CAT - CT HEAD ANGIOGRAM; CT NECK ANGIOGRAM EXAMINATION: CT ANGIOGRAM CAROTID - NECK AND BRAIN CLINICAL INFORMATION: Stroke. COMPARISON: CT head today TECHNIQUE: Test bolus sequences followed by intravenous administration 120 mL of Optiray 350. Helical imaging was performed in the axial plane from the mediastinum to the vertex. The data was processed at the neurology technologist workstation for generation of MIP sequences. No off site 3-D images performed. Workstation. FINDINGS: Normal examination. The origins of the great vessels are normal. The proximal subclavian arteries are normal. The origin of the right common carotid artery is normal. The right common carotid artery, carotid bifurcation and internal carotid artery is normal. The left common carotid artery, carotid bifurcation and internal carotid artery is normal. The origins of the vertebral arteries are normal. The vertebral arteries, basilar artery and their branches are normal. The [place] and cerebral arteries are normal. The CT of the brain is normal. No abnormal enhancement. The soft tissues of the neck are normal. There is emphysematous changes of lung. There is mild multilevel degenerative spondylosis of cervical spine. Small focus of mucosal thickening in the posterior left sphenoid sinus. IMPRESSION: Normal CTA of the head and neck DICTATED BY: RENAE MANNING MD DATE/TIME DICTATED:02/18/172104 SERVICE DATE: 02/18/17 EXAM TYPE: CAT - CT HEAD ANGIOGRAM; CT NECK ANGIOGRAM EXAMINATION: CT ANGIOGRAM CAROTID - NECK AND BRAIN CLINICAL INFORMATION: Stroke. COMPARISON: CT head today TECHNIQUE: Test bolus sequences followed by intravenous administration 120 mL of Optiray 350. Helical imaging was performed in the axial plane from the mediastinum to the vertex. The data was processed at the neurology technologist workstation for generation of MIP sequences. No off site 3-D images performed. Workstation. FINDINGS: Normal examination. The origins of the great vessels are normal. The proximal subclavian arteries are normal. The origin of the right common carotid artery is normal. The right common carotid artery, carotid bifurcation and internal carotid artery is normal. The left common carotid artery, carotid bifurcation and internal carotid artery is normal. The origins of the vertebral arteries are normal. The vertebral arteries, basilar artery and their branches are normal. The [place] and cerebral arteries are normal. The CT of the brain is normal. No abnormal enhancement. The soft tissues of the neck are normal. There is emphysematous changes of lung. There is mild multilevel degenerative spondylosis of cervical spine. Small focus of mucosal thickening in the posterior left sphenoid sinus. IMPRESSION: Normal CTA of the head and neck DICTATED BY: RENAE MANNING MD Assessment/Plan Impression/Plan: This is a 66-year-old lady with past medical history of COPD(NOT on oxygen at home), smoker 1 pack a day, rheumatic fever during childhood, possible heart block status post pacemaker, was BIBA with acute onset of right isded weakness, right facial droop and dysarthia. Pt was noted to still have the right side focal neurological deficits during ED evaluation, rcvd tpa (was well tithin the window). Initial CT head was unremarkable for any acute ischemic changes Pt was the then transferred to ICU for post tpa stroke management. Impression s/p tpa 2/2 to CVA Hx if pacemaker placement Hx of COPD Hx of tobacco use Plan * Continue ICU monitoring for at least 24 hrs from tpa administration * Continue BP monitoring q 1hr with goal of below 180/105 . Consider Labetalol IV or Nicardipine for elevated BP. Refrain from nitrates. * Refrain from sedative agents as this would affect neuro checks * Neuro checks q 1hr, CT head if worsening neuro exam findings. * SCD for DVT, no antiplatelet or anticoagulation for the first 24 hrs of tpa. * Repeat CBC/coags, BEP at 8pm (24 hr) * Trops non elevated * No arterial sticks or venipuncture of non-compressible sites in the first 24 hours * Accucheks for glucose q4-6 h, watch for hyperglycemia (Goal less than 180) * Awaiting medtronik interrogation for possible arrythmias prior to nuerological symptoms * Await echo results and cardiology input * Awaiting further neurology input * Advanced diet to mechanical soft with thin liquids per fromal swallo eval * OT/PT pending. Consult Acknowledgment - Thank you for your consult request. MADHU FARFAN MD 02/19/17 0851: Assessment/Plan Other Findings/Comments: Madhu Olson M.D. have examined this patient, reviewed available EMR data, personally reviewed images, discussed with resident/PA/DIRECTOR OF TRAUMA, discussed management plan with housestaff and nursing staff, discussed managment plan all of healthcare providers, discussed management plan with patient and/or family, agreed with resident/PA/DIRECTOR OF TRAUMA. The past history and parts of the chart have been autopopulated. 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
--- NOTE | 2017-02-19 08:47 | NUR ---
@0800-PT DROWSY/AROUS. R SLIGHT FACIAL DROOP CONT. NORIEGA WITH WEAKER TO R SIDE NOTED. + HAND GRASPS. PT FOLLOWS COMMANDS. + DRIFT TO ROMA. ONE WORD ANSWERS ONLY. PUPILS EQUAL AND REACTIVE. CONT NIH Q1HR. MRI OF HEAD ORD. CONT ON 2LNC. INSPIRTORY AND EXP WHEEZES NOTED, INCREASED R SIDE. NEBS PER RT. DENIES SOB. O2SAT 97%. PACING HR 70S. PACER NOTED TO W. BP STABLE 108/60. MANUAL BPS ONLY DUE TO S/P TPA 02/18/17. REPEAT EKG AND LABS DONE AT 0800. PT REMAINS NPO PENDING SWALLOW EVAL. ABD SOFT, +BS. LAST BM DATE UNKNOWN AT THIS TIME. FLORES IN PLACE WITH 20-30ML HOURLY. UA SENT THIS AM ORD. SKIN INTACT WITH POOR HYGIENE TO FEET NOTED. BOTTOM OF FEET SOILED WITH DRY BLACK MATERIAL. WILL PROVIDE HYGIENE THIS AM. ALPS REMAIN OFF AT THIS TIME DUE TO TPA AND WILL FOLLWUP WITH HOUSESTAFF REGARDING ALPS ORDER. IVF NS INFUSING AT 75ML/HR. @0830-ECHO BEING DONE AT BEDSIDE. CONT TO MONITOR CLOSELY. CALL [facility] WITHIN REACH.
[2017-02-19 08:54] LABS: ABSOLUTE BASOPHIL COUNT 0 /CUMM (0.0-0.2); ABSOLUTE EOSINOPHIL COUNT 0.1 /CUMM (0.0-0.7); ABSOLUTE GRANULOCYTE CT 3.4 /CUMM (1.4-6.5); ABSOLUTE LYMPH COUNT 1.2 /CUMM (1.2-3.4); ABSOLUTE MONOCYTE COUNT 0.4 /CUMM (0.10-0.60); BASOPHIL % 0.5 % (0.0-2.0); EOSINOPHIL % 2.4 % (0-5); GRANULOCYTE % 66.1 % (42.2-75.2); HEMATOCRIT 41.9 % (37-47); MEAN CORPUSCULAR HGB 32.4 PG (27.0-31.0); MEAN CORPUSCULAR HGB CONC 33.1 G/DL (33.0-37.0); MEAN CORPUSCULAR VOLUME 97.9 FL (81.0-99.0); MEAN PLATELET VOLUME 8.7 FL (7.4-10.4); PLATELET COUNT 152 /CUMM (130-400); RBC DISTRIBUTION WIDTH 13.7 % (11.5-14.5); RED BLOOD CELL CT 4.28 /CUMM (4.20-5.40); WHITE BLOOD CELL COUNT 5.2 /CUMM (4.8-10.8)
[2017-02-19 09:08] LABS: PT 10.9 SEC (9.4-12.5); PTT 29 SEC (25-37)
--- NOTE | 2017-02-19 10:35 | NUR ---
@0915-92/50. URINE OUTPUT 10ML FOR THE HOUR. NS 500ML BOLUS ADMINISTERED AT THIS TIME.
--- NOTE | 2017-02-19 10:36 | NUR ---
@1030-BP REMAINS 94/60. URINE OUTPUT 30ML FOR THE HOUR. ADDITIONAL 500ML NS BOLUS AT THIS TIME. CONT TO MONITOR .
--- NOTE | 2017-02-19 11:51 | RADIOLOGY REPORT ---
EXAMINATION: XR PORTABLE CHEST CLINICAL INFORMATION: CVA. Desaturation. COMPARISON: Chest done on 02/18/2017. TECHNIQUE: Portable frontal view of the chest was obtained. FINDINGS: Both lung bases are symmetrically expanded and appear clear. The cardiomediastinal silhouette is within normal limits. Dual-lead pacer device is noted, intact. No pleural effusion. No significant change. IMPRESSION: No acute cardiopulmonary disease, unchanged since 02/18/2017.
--- NOTE | 2017-02-19 12:12 | Cons- Cardiology ---
General Information and HPI Consulting Request Date of Consult: 02/19/17 Requested By: JJ GURROLA MD Reason for Consult: Stroke syndrome. Source of Information: patient, family, old records Exam Limitations: confusion, poor historian History of Present Illness: Mrs. Sharonda Trejo is a 66-year-old female with a long-standing history of tobacco use (50+ pack-year), COPD, hypertension, and conduction disease (s/p [employer] Sensia DR pacemaker implanted 11/22/2014) who presented to the ED last evening the acute onset of altered mental status, slurred speech, right hemiparesis, and right facial droop who received thrombolytic therapy, given the time course of events. According to her daughter, her mother had gone into the kitchen at around 7 p.m. and when her daughter heard her mother's voice, went into the kitchen to find her mother seated at the kitchen table, confused, with garbled speech, right facial droop and the inability to move her right side. Her daughter, suspecting a stroke, immediately called 911 with first responders arriving within 5 minutes. Allergies/Medications Allergies: Coded Allergies: NO KNOWN ALLERGIES (06/03/11) Home Med List: Albuterol Sulfate (Ventolin Hfa) 90 MCG HFA.AER.AD 2 PUF INH AD PRN RESPIRATORY (Reported) Budesonide/Formoterol Fumarate (Symbicort 80-4.5 Mcg Inhaler) 80 MCG-4.5 MCG/ ACTUATION HFA.AER.AD 2 PUF INH BID COPD (Reported) Valsartan (Diovan) 40 MG TABLET 1 TAB PO DAILY HEART/BP (Reported) Review of Systems Review of Systems: A 14 point system review was attempted, but unobtainable given patient's confusion and speech difficulty. Past History Travel History Traveled to [place] past 21 day No Medical History Cardiovascular: pacemaker Respiratory: COPD Surgical History Surgical History: non-contributory Family History Relations & Conditions If Any: DAUGHTER (malignant hyperthermia). Psychosocial History Smoking Status: Current Everyday Smoker ETOH Use: denies use Illicit Drug Use: denies illicit drug use Functional Ability ADLs Independent: dressing, eating, toileting, bathing. Ambulation: independent IADLs Independent: shopping, housework, finances, food prep, telephone, transportation , medication admin. Employment History Employment: Retired Exam & Diagnostic Data Vital Signs and I&O Vital Signs Date Time Temp Pulse Resp B/P B/P Pulse O2 O2 Flow FiO2 Mean Ox Delivery Rate 02/19 0830 Nasal 2.0L Cannula 02/19 0817 96 Nasal 2.0L Cannula 02/19 0800 96.9 73 15 108/60 97 Nasal 2.0L Cannula 02/19 0800 95 Nasal 2.0L Cannula 02/19 0400 97 Nasal 2.0L Cannula 02/19 0200 96 Nasal 2.0L Cannula 02/19 0118 97.2 74 20 110/78 97 Nasal 2.0L Cannula 02/19 0048 97.7 77 20 110/68 97 Nasal 2.0L Cannula 02/19 0035 97 Nasal 2.0L Cannula 02/19 0012 97.7 79 22 112/80 97 Nasal 2.0L Cannula 02/18 2348 98.1 88 18 118/80 97 Nasal 2.0L Cannula 02/18 2318 98.3 82 18 124/76 97 Nasal 2.0L Cannula 02/19 2248 98.4 85 20 120/78 95 Nasal 2.0L Cannula 02/18 2218 98.0 89 18 122/80 97 Nasal 2.0L Cannula 02/19 2148 98.3 85 18 122/78 97 Nasal 2.0L Cannula 02/18 2138 96 Nasal 2.0L Cannula 02/18 2133 98.3 95 20 128/76 96 Nasal 2.0L Cannula 02/18 2118 98.3 83 20 124/76 96 Nasal 2.0L Cannula 02/18 2103 98.7 91 20 130/80 95 Nasal 2.0L Cannula 02/19 2048 97.8 80 20 130/78 95 Nasal 2.0L Cannula 02/18 2033 97.6 80 20 128/76 97 Nasal 2.0L Cannula 02/18 2018 97.6 79 18 120/76 97 Nasal 2.0L Cannula 02/18 2003 98.2 83 18 128/76 97 Nasal 2.0L Cannula 02/18 1945 97.3 90 18 134/59 97 Nasal 2.0L Cannula 02/18 1915 97.7 103 20 149/89 95 Nasal Cannula Intake & Output 02/19 1600 02/19 0800 02/19 0000 02/18 1600 02/18 0800 02/18 0000 Intake Total 375 Output Total 1010 Balance -635 Intake, IV 375 Output, Urine 1010 Patient 111 lb 110 lb 103 lb Weight Weight Bed scale Bed scale Measurement Method Physical Exam: Well developed, well-nourished female in no acute distress with nasal oxygen in place. Line vital signs: See above. HEENT: Normocephalic, atraumatic, EOMI, slightly dry mucous membranes. Line neck: No JVD, no bruits. Lungs: Clear to auscultation bilaterally. Heart: S1, S2 with no murmur, gallop, or rub appreciated. PMI fifth ICS at [facility]. X Abdomen: Soft, nontender, positive bowel sounds. Extremities: No edema. Labs/Angel Results: Laboratory Tests 02/19 02/19 0810 0800 Chemistry Sodium (137 - 145 mmol/L) 142 Potassium (3.5 - 5.1 mmol/L) 4.1 Chloride (98 - 107 mmol/L) 104 Carbon Dioxide (22 - 30 mmol/L) 30 Anion Gap (5 - 16) 8 BUN (7 - 17 mg/dL) 15 Creatinine (0.5 - 1.0 mg/dL) 0.7 Estimated GFR (>60 ml/min) > 60 Glucose (65 - 99 mg/dL) 83 Calcium (8.4 - 10.2 mg/dL) 8.3 L Phosphorus (2.5 - 4.5 mg/dL) 4.6 H Magnesium (1.6 - 2.3 mg/dL) 2.0 Total Bilirubin (0.2 - 1.3 mg/dL) 0.7 AST (14 - 36 U/L) 20 ALT (9 - 52 U/L) 36 Albumin (3.5 - 5.0 g/dL) 3.7 Coagulation PT (9.4 - 12.5 SEC) 10.9 INR (0.90 - 1.19) 1.04 APTT (25 - 37 SEC) 29 Hematology CBC w Diff NO MAN DIFF REQ WBC (4.8 - 10.8 /CUMM) 5.2 RBC (4.20 - 5.40 /CUMM) 4.28 Hgb (12.0 - 16.0 G/DL) 13.9 Hct (37 - 47 %) 41.9 MCV (81.0 - 99.0 FL) 97.9 MCH (27.0 - 31.0 PG) 32.4 H RDW (11.5 - 14.5 %) 13.7 Plt Count (130 - 400 /CUMM) 152 MPV (7.4 - 10.4 FL) 8.7 Gran % (42.2 - 75.2 %) 66.1 Lymphocytes % (20.5 - 51.1 %) 23.6 Monocytes % (1.7 - 9.3 %) 7.4 Eosinophils % (0 - 5 %) 2.4 Basophils % (0.0 - 2.0 %) 0.5 Absolute Granulocytes (1.4 - 6.5 /CUMM) 3.4 Absolute Lymphocytes (1.2 - 3.4 /CUMM) 1.2 Absolute Monocytes (0.10 - 0.60 /CUMM) 0.4 Absolute Eosinophils (0.0 - 0.7 /CUMM) 0.1 Absolute Basophils (0.0 - 0.2 /CUMM) 0 PUBS MCHC (33.0 - 37.0 G/DL) 33.1 Urines Urinalysis LIGHT H Urine Color (YEL,AMB,STR) YEL Urine Clarity (CLEAR) HAZY H Urine pH (5.0 - 8.0) 6.0 Ur Specific [place] (1.001 - 1.035) 1.015 Urine Protein (NEG,<30 MG/DL) TRACE H Urine Ketones (NEG) NEG Urine Nitrite (NEG) NEG Urine Bilirubin (NEG) NEG Urine Urobilinogen (0.1 - 1.0 EU/dl) 0.2 Ur Leukocyte Esterase (NEG) NEG Ur Microscopic SEDIMENT EXAMINED Urine RBC (0 - 5 /HPF) 50-75 H Urine WBC (0 - 2 /HPF) RARE Ur Epithelial Cells (NONE,FEW) RARE Urine Mucus (FEW,NONE) RARE Urine Hemoglobin (NEG) LARGE H Urine Glucose (N MG/DL) NEG 02/19 194 Chemistry Troponin I (< 0.11 ng/ml) 0.02 Toxicology Urine Opiates Screen (>2000 NG/ML) < 100.00 Methadone Screen (>300 NG/ML) < 40 Barbiturate Screen (>200 NG/ML) < 60 Ur Phencyclidine Scrn (>25 NG/ML) < 6.00 Amphetamines Screen (>1000 NG/ML) < 100 U Benzodiazepines Scrn (>200 NG/ML) < 85 Urine Cocaine Screen (>300 NG/ML) < 50 Urine Cannabis Screen (>50 NG/ML) < 5.00 Urines Urine Color (YEL,AMB,STR) YEL Urine Clarity (CLEAR) CLEAR Urine pH (5.0 - 8.0) 6.0 Ur Specific [place] (1.001 - 1.035) 1.020 Urine Protein (NEG,<30 MG/DL) NEG Urine Ketones (NEG) TRACE H Urine Nitrite (NEG) NEG Urine Bilirubin (NEG) NEG Urine Urobilinogen (0.1 - 1.0 EU/dl) 0.2 Ur Leukocyte Esterase (NEG) NEG Ur Microscopic SEDIMENT EXAMINED Urine RBC (0 - 5 /HPF) 1-3 Ur Epithelial Cells (NONE,FEW) RARE Urine Hemoglobin (NEG) TRACE-INTACT Urine Glucose (N MG/DL) NEG 02/18 1930 Chemistry Sodium (137 - 145 mmol/L) 140 Potassium (3.5 - 5.1 mmol/L) 4.8 Chloride (98 - 107 mmol/L) 100 Carbon Dioxide (22 - 30 mmol/L) 31 H Anion Gap (5 - 16) 9 BUN (7 - 17 mg/dL) 12 Creatinine (0.5 - 1.0 mg/dL) 1.2 H Estimated GFR (>60 ml/min) 45 L BUN/Creatinine Ratio (7 - 25 %) 10.0 Glucose (65 - 99 mg/dL) 88 Calcium (8.4 - 10.2 mg/dL) 8.6 Total Bilirubin (0.2 - 1.3 mg/dL) 0.6 AST (14 - 36 U/L) 23 ALT (9 - 52 U/L) 34 Alkaline Phosphatase (<127 U/L) 131 H Troponin I (< 0.11 ng/ml) < 0.01 Total Protein (6.3 - 8.2 g/dL) 6.6 Albumin (3.5 - 5.0 g/dL) 4.1 Globulin (1.9 - 4.2 gm/dL) 2.5 Albumin/Globulin Ratio (1.1 - 2.2 %) 1.6 Triglycerides (<150 mg/dL) 64 Cholesterol (<200 MG/DL) 208 H LDL Cholesterol, Calc (65 - 129 mg/dL) 100 HDL Cholesterol (40 - 60 mg/dL) 96 H Cholesterol/HDL Ratio (0.00 - 4.23 %) 2 Coagulation PT (9.4 - 12.5 SEC) 10.6 INR (0.90 - 1.19) 1.01 APTT (25 - 37 SEC) 32 Hematology CBC w Diff NO MAN DIFF REQ WBC (4.8 - 10.8 /CUMM) 5.3 RBC (4.20 - 5.40 /CUMM) 4.54 Hgb (12.0 - 16.0 G/DL) 14.5 Hct (37 - 47 %) 44.2 MCV (81.0 - 99.0 FL) 97.3 MCH (27.0 - 31.0 PG) 31.9 H RDW (11.5 - 14.5 %) 13.7 Plt Count (130 - 400 /CUMM) 185 MPV (7.4 - 10.4 FL) 8.4 Gran % (42.2 - 75.2 %) 57.7 Lymphocytes % (20.5 - 51.1 %) 30.5 Monocytes % (1.7 - 9.3 %) 8.7 Eosinophils % (0 - 5 %) 2.3 Basophils % (0.0 - 2.0 %) 0.8 Absolute Granulocytes (1.4 - 6.5 /CUMM) 3.0 Absolute Lymphocytes (1.2 - 3.4 /CUMM) 1.6 Absolute Monocytes (0.10 - 0.60 /CUMM) 0.5 Absolute Eosinophils (0.0 - 0.7 /CUMM) 0.1 Absolute Basophils (0.0 - 0.2 /CUMM) 0 PUBS MCHC (33.0 - 37.0 G/DL) 32.8 L Diagnostic Data EKG Results (02/19/2017) properly functioning electronic pacemaker with atrial sensed, ventricular paced rhythm. CXR Results (02/19/2017): No acute cardiopulmonary disease. Other Results Head and neck CTA (02/19/2017): Normal CTA of head and neck. Head CT (02/18/2017): The study is degraded by patient motion. No acute intracranial pathology. Assessment/Plan Assessment/Plan [id number] w/ hx tobacco use (50+ pack-year), COPD, HTN, and conduction disease (s/p [employer] Sensia DR pacemaker implanted 11/22/2014) who presented to the ED last evening the acute onset of altered mental status, slurred speech, right hemiparesis, and right facial droop who received thrombolytic therapy, given the time course of events. Recommendations: * Continue ICU observation, follow-up electrocardiogram, & troponins, although doubt an acute coronary syndrome. * Contact [employer] for pacemaker interrogation to assess for paroxysmal atrial fibrillation. * Schedule for an echocardiogram to assess for potential cardioembolic source. * Carotid ultrasound. * Antiplatelet and statin therapy. * Hold antihypertensive regimen for now and continue to follow-up blood pressure closely. * Neck free T4, TSH, & glycosylated hemoglobin A1c. * Neurology consultation. * Physical, occupational, & speech therapy consultations. * Swallowing evaluation. Further recommendations will follow, Thank you. Consult Acknowledgment - Thank you for your consult request.
--- NOTE | 2017-02-19 14:15 | NUR ---
@1330-PACER INTERROGATED. @1340-REPEAT LIMITED ECHO DONE AT BEDSIDE. CONT TO MONITOR.
--- NOTE | 2017-02-19 14:31 | Cons- Neurology ---
General Information and HPI Consulting Request Date of Consult: 02/19/17 Requested By: JJ GURROLA MD Reason for Consult: Stroke alert Source of Information: patient, family, ER physician Exam Limitations: no limitations History of Present Illness: 66-year-old left-handed woman developed numbness and weakness of the right body yesterday afternoon and arrived quickly at the emergency room. Stroke alert was called, she was taken rapidly to the CT scanner where no hemorrhage was noted and after phone consultation TPA was administered. Initially she was unable to speak and quite weak although she could just lift her arm off the bed against gravity, according to the ER M.D. She's been transferred to the ICU and is reportedly stable Today weakness has improved considerably but speech is still slurred. No history of any prior stroke or TIA and no cardiac problems known to the patient Allergies/Medications Allergies: Coded Allergies: NO KNOWN ALLERGIES (06/03/11) Home Med List: Albuterol Sulfate (Ventolin Hfa) 90 MCG HFA.AER.AD 2 PUF INH AD PRN RESPIRATORY (Reported) Budesonide/Formoterol Fumarate (Symbicort 80-4.5 Mcg Inhaler) 80 MCG-4.5 MCG/ ACTUATION HFA.AER.AD 2 PUF INH BID COPD (Reported) Valsartan (Diovan) 40 MG TABLET 1 TAB PO DAILY HEART/BP (Reported) Current Medications: Current Medications Sig/Suzie Start time Last Medication Dose Route Stop Time Status Admin Acetaminophen 650 MG Q6P PRN 02/19 0045 AC PO Albuterol Sulfate 3 ML EVERY 4 HRS/AWAKE 02/19 0900 AC 02/19 INH 1159 Albuterol Sulfate 3 ML Q6 PRN 02/19 0030 AC 02/19 INH 0034 Alteplase, 4.185 MG BOLUS ONE 02/18 1945 DC 02/18 Recombinant IV 02/18 Alteplase, 37.665 MG ONCE ONE 02/18 1945 DC 02/18 Recombinant IV 02/18 Alteplase, 0 .STK-MED ONE 02/18 1945 DC Recombinant IV Alteplase, See Dose BOLUS ONE 02/18 1930 CAN Recombinant Insts (1) IV 02/18 1931 Alteplase, See Dose ONCE ONE 02/18 1930 CAN Recombinant Insts (2) IV 07/22 1931 Atorvastatin Calcium 80 MG 1700 02/19 1700 AC PO Budesonide/ 2 PUF BID 02/19 1000 AC 02/19 Formoterol Fumarate INH 0914 Sodium Chloride 500 ML BOLUS ONE 02/19 1045 DC 02/19 IV 02/19 1144 1045 Sodium Chloride 500 ML BOLUS ONE 02/19 0915 DC 02/19 IV 02/19 1014 0914 Sodium Chloride 1,000 ML Q13H 02/19 0045 AC 02/19 IV 02/19 2344 1254 Dose Instructions: (1)Alteplase, Recombinant: Administer over one minute (2)Alteplase, Recombinant: Infuse over 60 minutes Review of Systems Review of Systems: ROS: A complete medical systems review was obtained. No pertinent complaints were found. Particularly no headache, no change in vision which is somewhat diminished on a long-standing basis, no chest pain or palpitations Past History Travel History Traveled to [facility] past 21 day No Medical History Cardiovascular: pacemaker Respiratory: COPD Surgical History Surgical History: non-contributory Family History Relations & Conditions If Any: DAUGHTER (malignant hyperthermia). Psychosocial History Smoking Status: Current Everyday Smoker ETOH Use: denies use Illicit Drug Use: denies illicit drug use Functional Ability ADLs Independent: dressing, eating, toileting, bathing. Ambulation: independent IADLs Independent: shopping, housework, finances, food prep, telephone, transportation , medication admin. Employment History Employment: Retired Exam & Diagnostic Data Vital Signs and I&O Vital Signs Date Time Temp Pulse Resp B/P B/P Pulse O2 O2 Flow FiO2 Mean Ox Delivery Rate 02/19 1200 99 Nasal 1.0L Cannula 02/19 0830 Nasal 2.0L Cannula 02/19 0817 96 Nasal 2.0L Cannula 02/19 0800 96.9 73 15 108/60 97 Nasal 2.0L Cannula 02/19 0800 95 Nasal 2.0L Cannula 02/19 0400 97 Nasal 2.0L Cannula 02/19 0200 96 Nasal 2.0L Cannula 02/19 0118 97.2 74 20 110/78 97 Nasal 2.0L Cannula 02/19 0048 97.7 77 20 110/68 97 Nasal 2.0L Cannula 02/19 0035 97 Nasal 2.0L Cannula 02/19 0012 97.7 79 22 112/80 97 Nasal 2.0L Cannula 02/188 98.1 88 18 118/80 97 Nasal 2.0L Cannula 02/188 98.3 82 18 124/76 97 Nasal 2.0L Cannula 02/18 2248 98.4 85 20 120/78 95 Nasal 2.0L Cannula 02/188 98.0 89 18 122/80 97 Nasal 2.0L Cannula 02/188 98.3 85 18 122/78 97 Nasal 2.0L Cannula 02/18 2138 96 Nasal 2.0L Cannula 02/18 2133 98.3 95 20 128/76 96 Nasal 2.0L Cannula 02/18 2118 98.3 83 20 124/76 96 Nasal 2.0L Cannula 02/18 2103 98.7 91 20 130/80 95 Nasal 2.0L Cannula 02/19 2048 97.8 80 20 130/78 95 Nasal 2.0L Cannula 02/18 2033 97.6 80 20 128/76 97 Nasal 2.0L Cannula 02/18 2018 97.6 79 18 120/76 97 Nasal 2.0L Cannula 02/18 2003 98.2 83 18 128/76 97 Nasal 2.0L Cannula 02/18 1945 97.3 90 18 134/59 97 Nasal 2.0L Cannula 02/18 1915 97.7 103 20 149/89 95 Nasal Cannula Intake & Output 02/19 1600 02/19 0800 02/19 0000 Intake Total 1710 375 Output Total 270 1010 Balance 1440 -635 Intake, IV 1450 375 Intake, Oral 260 Number 0 Bowel Movements Output, Urine 270 1010 Patient 111 lb 110 lb 103 lb Weight Weight Bed scale Bed scale Measurement Method Physical Exam: On exam the patient appeared generally well and in no distress. No carotid bruits and no cardiac murmur. No peripheral edema Mental status: Alert, attentive, fully oriented, no language errors, recall and general fund of knowledge seem intact Funduscopic unremarkable Visual velazquez full , Eye movements are mildly restricted but without nystagmus, pupils midsize equal round and reactive to light. Right lower facial weakness Facial sensation normal bilaterally Hearing intact bilaterally Uvula elevates midline Tongue protrusion is midline Shoulder shrug symmetric Motor power mildly weak on the right 4+/5 in the arm. Leg power grossly normal on manual testing. Tone normal Sensation intact to primary modes Tendon reflexes normal and symmetric, right Babinski sign Coordination mild impairment of hand control on the right Gait [testing deferred][normal] Last 48 Hours of Lab Results: Laboratory Tests 02/19 02/19 0810 0800 Chemistry Sodium (137 - 145 mmol/L) 142 Potassium (3.5 - 5.1 mmol/L) 4.1 Chloride (98 - 107 mmol/L) 104 Carbon Dioxide (22 - 30 mmol/L) 30 Anion Gap (5 - 16) 8 BUN (7 - 17 mg/dL) 15 Creatinine (0.5 - 1.0 mg/dL) 0.7 Estimated GFR (>60 ml/min) > 60 Glucose (65 - 99 mg/dL) 83 Calcium (8.4 - 10.2 mg/dL) 8.3 L Phosphorus (2.5 - 4.5 mg/dL) 4.6 H Magnesium (1.6 - 2.3 mg/dL) 2.0 Total Bilirubin (0.2 - 1.3 mg/dL) 0.7 AST (14 - 36 U/L) 20 ALT (9 - 52 U/L) 36 Albumin (3.5 - 5.0 g/dL) 3.7 TSH (0.270 - 4.200 uIU/mL) 0.249 L Coagulation PT (9.4 - 12.5 SEC) 10.9 INR (0.90 - 1.19) 1.04 APTT (25 - 37 SEC) 29 Hematology CBC w Diff NO MAN DIFF REQ WBC (4.8 - 10.8 /CUMM) 5.2 RBC (4.20 - 5.40 /CUMM) 4.28 Hgb (12.0 - 16.0 G/DL) 13.9 Hct (37 - 47 %) 41.9 MCV (81.0 - 99.0 FL) 97.9 MCH (27.0 - 31.0 PG) 32.4 H RDW (11.5 - 14.5 %) 13.7 Plt Count (130 - 400 /CUMM) 152 MPV (7.4 - 10.4 FL) 8.7 Gran % (42.2 - 75.2 %) 66.1 Lymphocytes % (20.5 - 51.1 %) 23.6 Monocytes % (1.7 - 9.3 %) 7.4 Eosinophils % (0 - 5 %) 2.4 Basophils % (0.0 - 2.0 %) 0.5 Absolute Granulocytes (1.4 - 6.5 /CUMM) 3.4 Absolute Lymphocytes (1.2 - 3.4 /CUMM) 1.2 Absolute Monocytes (0.10 - 0.60 /CUMM) 0.4 Absolute Eosinophils (0.0 - 0.7 /CUMM) 0.1 Absolute Basophils (0.0 - 0.2 /CUMM) 0 PUBS MCHC (33.0 - 37.0 G/DL) 33.1 Urines Urinalysis LIGHT H Urine Color (YEL,AMB,STR) YEL Urine Clarity (CLEAR) HAZY H Urine pH (5.0 - 8.0) 6.0 Ur Specific [place] (1.001 - 1.035) 1.015 Urine Protein (NEG,<30 MG/DL) TRACE H Urine Ketones (NEG) NEG Urine Nitrite (NEG) NEG Urine Bilirubin (NEG) NEG Urine Urobilinogen (0.1 - 1.0 EU/dl) 0.2 Ur Leukocyte Esterase (NEG) NEG Ur Microscopic SEDIMENT EXAMINED Urine RBC (0 - 5 /HPF) 50-75 H Urine WBC (0 - 2 /HPF) RARE Ur Epithelial Cells (NONE,FEW) RARE Urine Mucus (FEW,NONE) RARE Urine Hemoglobin (NEG) LARGE H Urine Glucose (N MG/DL) NEG 02/19 Chemistry Troponin I (< 0.11 ng/ml) 0.02 Toxicology Urine Opiates Screen (>2000 NG/ML) < 100.00 Methadone Screen (>300 NG/ML) < 40 Barbiturate Screen (>200 NG/ML) < 60 Ur Phencyclidine Scrn (>25 NG/ML) < 6.00 Amphetamines Screen (>1000 NG/ML) < 100 U Benzodiazepines Scrn (>200 NG/ML) < 85 Urine Cocaine Screen (>300 NG/ML) < 50 Urine Cannabis Screen (>50 NG/ML) < 5.00 Urines Urine Color (YEL,AMB,STR) YEL Urine Clarity (CLEAR) CLEAR Urine pH (5.0 - 8.0) 6.0 Ur Specific [place] (1.001 - 1.035) 1.020 Urine Protein (NEG,<30 MG/DL) NEG Urine Ketones (NEG) TRACE H Urine Nitrite (NEG) NEG Urine Bilirubin (NEG) NEG Urine Urobilinogen (0.1 - 1.0 EU/dl) 0.2 Ur Leukocyte Esterase (NEG) NEG Ur Microscopic SEDIMENT EXAMINED Urine RBC (0 - 5 /HPF) 1-3 Ur Epithelial Cells (NONE,FEW) RARE Urine Hemoglobin (NEG) TRACE-INTACT Urine Glucose (N MG/DL) NEG 02/18 1930 Chemistry Sodium (137 - 145 mmol/L) 140 Potassium (3.5 - 5.1 mmol/L) 4.8 Chloride (98 - 107 mmol/L) 100 Carbon Dioxide (22 - 30 mmol/L) 31 H Anion Gap (5 - 16) 9 BUN (7 - 17 mg/dL) 12 Creatinine (0.5 - 1.0 mg/dL) 1.2 H Estimated GFR (>60 ml/min) 45 L BUN/Creatinine Ratio (7 - 25 %) 10.0 Glucose (65 - 99 mg/dL) 88 Calcium (8.4 - 10.2 mg/dL) 8.6 Total Bilirubin (0.2 - 1.3 mg/dL) 0.6 AST (14 - 36 U/L) 23 ALT (9 - 52 U/L) 34 Alkaline Phosphatase (<127 U/L) 131 H Troponin I (< 0.11 ng/ml) < 0.01 Total Protein (6.3 - 8.2 g/dL) 6.6 Albumin (3.5 - 5.0 g/dL) 4.1 Globulin (1.9 - 4.2 gm/dL) 2.5 Albumin/Globulin Ratio (1.1 - 2.2 %) 1.6 Triglycerides (<150 mg/dL) 64 Cholesterol (<200 MG/DL) 208 H LDL Cholesterol, Calc (65 - 129 mg/dL) 100 HDL Cholesterol (40 - 60 mg/dL) 96 H Cholesterol/HDL Ratio (0.00 - 4.23 %) 2 Coagulation PT (9.4 - 12.5 SEC) 10.6 INR (0.90 - 1.19) 1.01 APTT (25 - 37 SEC) 32 Hematology CBC w Diff NO MAN DIFF REQ WBC (4.8 - 10.8 /CUMM) 5.3 RBC (4.20 - 5.40 /CUMM) 4.54 Hgb (12.0 - 16.0 G/DL) 14.5 Hct (37 - 47 %) 44.2 MCV (81.0 - 99.0 FL) 97.3 MCH (27.0 - 31.0 PG) 31.9 H RDW (11.5 - 14.5 %) 13.7 Plt Count (130 - 400 /CUMM) 185 MPV (7.4 - 10.4 FL) 8.4 Gran % (42.2 - 75.2 %) 57.7 Lymphocytes % (20.5 - 51.1 %) 30.5 Monocytes % (1.7 - 9.3 %) 8.7 Eosinophils % (0 - 5 %) 2.3 Basophils % (0.0 - 2.0 %) 0.8 Absolute Granulocytes (1.4 - 6.5 /CUMM) 3.0 Absolute Lymphocytes (1.2 - 3.4 /CUMM) 1.6 Absolute Monocytes (0.10 - 0.60 /CUMM) 0.5 Absolute Eosinophils (0.0 - 0.7 /CUMM) 0.1 Absolute Basophils (0.0 - 0.2 /CUMM) 0 PUBS MCHC (33.0 - 37.0 G/DL) 32.8 L Imaging/Other Studies: CTA Head and neck: Normal examination. The origins of the great vessels are normal. The proximal subclavian arteries are normal. The origin of the right common carotid artery is normal. The right common carotid artery, carotid bifurcation and internal carotid artery is normal. The left common carotid artery, carotid bifurcation and internal carotid artery is normal. The origins of the vertebral arteries are normal. The vertebral arteries, basilar artery and their branches are normal. The [place] and cerebral arteries are normal. The CT of the brain is normal. No abnormal enhancement. The soft tissues of the neck are normal. There is emphysematous changes of lung. There is mild multilevel degenerative spondylosis of cervical spine. Small focus of mucosal thickening in the posterior left sphenoid sinus. IMPRESSION: normal CTA head and neck CT Head: The study is degraded by patient motion. No acute intracranial pathology. Assessment/Plan Assessment: Stroke, left hemispheric, treated with TPA with considerable improvement. Now in medical ICU, vital signs stable Recommendations: Follow TPA protocol: No antithrombotic's for 24 hours Follow-up head CT tomorrow Stat head CT if any deterioration in neurologic status occurs to rule out hemorrhagic transformation Schedule carotid Dopplers and echocardiogram Maintained telemetry to rule out PAF After 24 hours begin aspirin 81 MG EC daily and atorvastatin 40 MG daily Counseling on smoking cessation Follow-up will be provided as needed Consult Acknowledgment - Thank you for your consult request.
--- NOTE | 2017-02-19 15:09 | ECHOCARDIOGRAM REPORT ---
MIRIAM BELTRAN Age: 66 : 1950 Gender: F Exam Date: 02/19/2017 13:41 Exam Location: [facility] Ht (in): 64 Wt (lb): 111 BSA: 1.50 BP: 111 / 59 Ordering Physician: AGUSTÍN BINGHAM MD Referring Physician: Maikel Burroughs M.D. Technologist: Liliya Patino RDCS Room Number: 108 Indications: STROKE Rhythm: Technical Quality: FINDINGS Left Ventricle Right Ventricle Right Atrium Left Atrium Mitral Valve Aortic Valve Tricuspid Valve Pulmonic Valve Pericardium Great Vessels CONCLUSIONS Additional views including off axis views were obtained. There is a lot of acoustic artifact from pacemaker leads. They probably are in the proper location in the right atrium and right ventricle. I recommend AMY to evaluate left atrial appendage and positon of pacer leads if no cause of stroke is found. Maikel Burroughs M.D. (Electronically Signed) Final Date: 19 February 2017 15:08 MEASUREMENTS (Male / Female) Normal Values
--- NOTE | 2017-02-19 15:14 | ECHOCARDIOGRAM REPORT ---
MIRIAM BELTRAN Age: 66 : 1950 Gender: F Exam Date: 02/19/2017 08:20 Exam Location: [facility] Ht (in): 64 Wt (lb): 102 BSA: 1.44 BP: 110 / 78 Ordering Physician: FESTUS HOGAN MD Referring Physician: Maikel Burroughs M.D. Technologist: Liliya Patino RDCS Room Number: 108 Indications: STROKE Rhythm: AV paced Technical Quality: good FINDINGS Left Ventricle Normal left ventricular ejection fraction visually estimated at 60 %. Normal size left ventricle. No left ventricular hypertrophy. Dyskinetic septum due to paced rhythm. Right Ventricle Normal right ventricular size and function. Right Atrium Normal right atrial size. Left Atrium Normal left atrial size. Mitral Valve Moderate thickening/calcification of the anterior mitral valve leaflet. Mild mitral regurgitation. Aortic Valve Diffuse thickening (sclerosis) of the aortic valve cusps without reduced excursion. Mild aortic regurgitation. Tricuspid Valve Structurally normal tricuspid valve. Trace tricuspid regurgitation. Right ventricular systolic pressure estimated at 20 mmHg. Pulmonic Valve Structurally normal pulmonic valve. Pericardium No pericardial effusion. Great Vessels Normal size aortic root. CONCLUSIONS Normal left ventricular ejection fraction visually estimated at 60 Dyskinetic septum due to paced rhythm. Moderate thickening/calcification of the anterior mitral valve leaflet. Mild mitral regurgitation. Diffuse thickening (sclerosis) of the aortic valve cusps without reduced excursion. Mild aortic regurgitation. Trace tricuspid regurgitation. Right ventricular systolic pressure estimated at 20 mmHg. Pacemaker leads are probably in proper position in the right atrium and ventricle. There appears to be acoustic artifact in the left ventricle. Will obtain additional images of the pacer leads with limited transthoracic study. Maikel Burroughs M.D. (Electronically Signed) Final Date: 19 February 2017 15:14 MEASUREMENTS (Male / Female) Normal Values 2D ECHO LV Diastolic Diameter PLAX 4.3 cm 4.2 - 5.9 / 3.9 - 5.3 cm LV Systolic Diameter PLAX 2.6 cm 2.1 - 4.0 cm LV Fractional Shortening PLAX 39.5 % 25 - 46 % LV Ejection Fraction 2D Teich 70.4 % IVS Diastolic Thickness 0.9 cm LVPW Diastolic Thickness 0.8 cm LV Relative Wall Thickness 0.4 RV Internal Dim ED PLAX 3.3 cm 1.9 - 3.8 cm LVOT Diameter 1.9 cm Aortic Root Diameter 2.6 cm LA Systolic Diameter LX 2.4 cm 3.0 - 4.0 / 2.7 - 3.8 cm LA Volume 21.0 cm 18 - 58 / 22 - 52 cm DOPPLER AV Peak Velocity 164.0 cm/s AV Peak Gradient 10.8 mmHg AV Mean Velocity 104.0 cm/s AV Mean Gradient 5.0 mmHg AV Velocity Time Integral 29.4 cm LVOT Peak Velocity 127.0 cm/s LVOT Peak Gradient 6.5 mmHg LVOT Mean Velocity 81.6 cm/s LVOT Mean Gradient 3.0 mmHg LVOT Velocity Time Integral 23.8 cm LVOT Stroke Volume 67.5 cm AV Area Cont Eq vti 2.3 cm AV Area Cont Eq pk 2.2 cm MV Peak Velocity 91.7 cm/s MV Peak Gradient 3.4 mmHg MV Mean Velocity 59.9 cm/s MV Mean Gradient 2.0 mmHg Mitral E Point Velocity 63.2 cm/s Mitral A Point Velocity 75.0 cm/s Mitral E to A Ratio 0.8 MV PHT Velocity 96.4 cm/s MV Deceleration Meriwether 426.0 cm/s MV Pressure Half Time 67.9 ms MV Area PHT 3.2 cm MV Deceleration Time 298.0 ms TR Peak Velocity 198.0 cm/s TR Peak Gradient 15.7 mmHg Right Atrial Pressure 5.0 mmHg Pulmonary Artery Systolic Pressu 20.7 mmHg Right Ventricular Systolic Press 20.7 mmHg LV E' Lateral Velocity 10.4 cm/s Mitral E to LV E' Lateral Ratio 6.1 LV E' Septal Velocity 5.1 cm/s Mitral E to LV E' Septal Ratio 12.5
[2017-02-19 16:00] VITALS: BP 100/60
--- NOTE | 2017-02-19 16:58 | NUR ---
@1600-PT AWAKE, ALERT. CONFUSED AT TIMES. FOLLOWS SIMPLE COMMANDS. NIH SCORE 3-4. R SIDED WEAKNESS TO UE AND R FACIAL DROOP CONT. [facility]. ACCUCHECK 77-REPORTED TO HOUSESTAFF AND OJ PROVIDED. CAROTID US BEING DONE AT BEDSIDE AT THIS TIME. CRIT VALUE OF TROP 0.14 RECIEVED AT 1525-REPORTED TO HOUSESTAFF. PT DENIES CP. REPEAT TROP AND EKG DONE AT THIS TIME. IVF CONT NS INFUSING AT 100ML/HR. MIN URINE OUTPUT CONT WITH 20-30ML HOURLY OUTPUT NOTED. FAMILY AT BEDSIDE. CONT TO MONITOR, CALL [facility] WITHIN REACH.
--- NOTE | 2017-02-19 17:45 | ULTRASOUND REPORT ---
EXAMINATION: BILATERAL DUPLEX CAROTID ULTRASOUND CLINICAL INDICATION: 66-year-old female with right-sided hemiparesis. COMPARISON: CT of the head and neck done on 02/18/2017. TECHNIQUE: TECHNIQUE: Real-time ultrasound and Doppler techniques (integrating B-mode 2D vascular images, Doppler spectral analysis and color flow Doppler imaging) were utilized to interrogate the extracranial carotid and vertebral arteries bilaterally. The degree of stenosis determined by criteria similar to NASCET. FINDINGS: On the right, there is no significant plaque present at the carotid bifurcation. In the distal CCA, the peak systolic velocity is 54 cm/sec. In the proximal ICA, the peak systolic velocity is 62 cm/sec, and the end diastolic velocity is 20 cm/sec. The ICA/CCA ratio is 1.34. On the left, there is no significant plaque present at the carotid bifurcation. In the distal CCA, the peak systolic velocity is 69 cm/sec. In the proximal ICA, the peak systolic velocity is 56 cm/sec, and the end diastolic velocity is 23 cm/sec. The ICA/CCA ratio is 0.8. The vertebral arteries show antegrade flow with normal waveforms bilaterally. IMPRESSION: Normal carotid arterial duplex ultrasound.
--- NOTE | 2017-02-19 21:01 | CT SCAN REPORT ---
EXAMINATION: CT HEAD WITHOUT CONTRAST CLINICAL INFORMATION: Status post TPA. Question bleed. History of right hemiparesis COMPARISON: CT head 02/18/2017 TECHNIQUE: Contiguous axial imaging was performed from the skull base to vertex without intravenous administration of contrast. DLP: 683.1 mGy-cm FINDINGS: There is no acute intracranial hemorrhage. Within the left thalamus there is a new area of hypoattenuation measuring 1.6 x 1.1 cm (image 23, series 2).. No abnormal mass effect or midline shift is seen. Lim to white matter differentiation is well preserved. No extra-axial fluid collections are identified. The ventricles are normal in size. There is no other abnormal attenuation within the brain parenchyma. The osseous structures and soft tissues are normal. The visualized portions of the paranasal sinuses and mastoid air cells appear well. Aside from partial opacification within the left sphenoid sinus. IMPRESSION: 1. New area of hypoattenuation within the left thalamus, presumably evolving infarction. 2. No acute intracranial hemorrhage. 3. Partial opacification of the left sphenoid sinus.
[2017-02-19 22:56] LABS: ABSOLUTE BASOPHIL COUNT 0 /CUMM (0.0-0.2); ABSOLUTE EOSINOPHIL COUNT 0.1 /CUMM (0.0-0.7); ABSOLUTE GRANULOCYTE CT 3.8 /CUMM (1.4-6.5); ABSOLUTE LYMPH COUNT 1.2 /CUMM (1.2-3.4); ABSOLUTE MONOCYTE COUNT 0.5 /CUMM (0.10-0.60); BASOPHIL % 0.7 % (0.0-2.0); EOSINOPHIL % 1.7 % (0-5); GRANULOCYTE % 67.8 % (42.2-75.2); HEMATOCRIT 38.8 % (37-47); MEAN CORPUSCULAR HGB 32.1 PG (27.0-31.0); MEAN CORPUSCULAR HGB CONC 32.9 G/DL (33.0-37.0); MEAN CORPUSCULAR VOLUME 97.4 FL (81.0-99.0); MEAN PLATELET VOLUME 9.2 FL (7.4-10.4); PLATELET COUNT 149 /CUMM (130-400); RBC DISTRIBUTION WIDTH 13.5 % (11.5-14.5); RED BLOOD CELL CT 3.99 /CUMM (4.20-5.40); WHITE BLOOD CELL COUNT 5.6 /CUMM (4.8-10.8)
[2017-02-19 23:05] LABS: PT 10.8 SEC (9.4-12.5); PTT 31 SEC (25-37)
[2017-02-20 00:30] VITALS: BP 124/60
--- NOTE | 2017-02-20 02:29 | NUR ---
PT TO CT SCAN OF HEAD WITH RN AND MONITOR ON EVES W/O INCIDENT. PT DROWSY BUT EASILY AWAKENED. NORIEGA TO COMMAND R SIDE WEAKER THAN LEFT. PT HESITANT WITH ANSWERING QUESTIONS, SOMETIMES WITH INCORRECT RESPONCE BUT CORRECTS HERSELF, DIFFICULTY FORMING SENTENCES AND HAS CONFUSED CONVERSATION AT TIMES. ACCUCHECKS Q4H 103-107. D5W HUNG AT 50 ML/H AT 2300. NPO AFTER MN. NASAL O2 AT 1L HAS EXP WHEEZE AT TIMES. O2 SAT 96-98% DENIES PAIN.
[2017-02-20 05:35] LABS: ABSOLUTE BASOPHIL COUNT 0 /CUMM (0.0-0.2); ABSOLUTE EOSINOPHIL COUNT 0.1 /CUMM (0.0-0.7); ABSOLUTE GRANULOCYTE CT 3.7 /CUMM (1.4-6.5); ABSOLUTE LYMPH COUNT 1.4 /CUMM (1.2-3.4); ABSOLUTE MONOCYTE COUNT 0.4 /CUMM (0.10-0.60); BASOPHIL % 0.6 % (0.0-2.0); EOSINOPHIL % 2.4 % (0-5); GRANULOCYTE % 65.7 % (42.2-75.2); HEMATOCRIT 38.3 % (37-47); MEAN CORPUSCULAR HGB 32.4 PG (27.0-31.0); MEAN CORPUSCULAR VOLUME 98.2 FL (81.0-99.0); PLATELET COUNT 134 /CUMM (130-400); RBC DISTRIBUTION WIDTH 13.4 % (11.5-14.5); WHITE BLOOD CELL COUNT 5.7 /CUMM (4.8-10.8)
[2017-02-20 05:40] LABS: PT 10.9 SEC (9.4-12.5); PTT 30 SEC (25-37)
--- NOTE | 2017-02-20 07:13 | PN- Cardiology ---
Subjective Subjective: Patient is more awake, speech improved. Review of Systems Constitutional: Reports: weakness. Denies: no symptoms, see HPI, chills, diaphoresis, fever, malaise, unexplained weight loss. EENTM: Denies: no symptoms, see HPI, blurred vision, double vision, visual changes, eye pain, eye drainage, eye tearing, icterus, ear discharge, ear pain, ear redness, hearing changes, nasal congestion, epistaxis, nasal pain, throat pain, throat swelling, mouth pain, tooth pain. Cardiovascular: Denies: no symptoms, see HPI, chest pain, edema, orthopena, palpitations, peripheral edema, syncope. Respiratory: Denies: no symptoms, see HPI, cough, hemoptysis, orthopnea, short of breath, sputum production, stridor, wheezing. Gastrointestinal: Denies: no symptoms, see HPI, abdominal pain, bloating, constipation, diarrhea, distention, bowel incontinence, melena, nausea, bloody stool, changes in stool, vomiting, steatorrhea. Genitourinary: Denies: no symptoms, see HPI, discharge, dysuria, frequency, hematuria, hesitation, nocturia, pain, urgency. Musculoskeletal: Denies: no symptoms, see HPI, back pain, gout, joint pain, joint swelling, muscle pain, muscle stiffness, neck pain. Skin: Denies: no symptoms, see HPI, cysts, change in skin color, change in hair/nails, dryness, erythema, jaundice, lesions, lymphangitis, lumps, moles, rash. Neurological/Psychological: Reports: weakness. Denies: no symptoms, see HPI, anxiety, ataxia, cognitive dysfunction, confusion, depressed, dementia, emotional problems, headache, numbness, paresthesia, pre-existing deficit, petit mal seizures, tingling, tremors, tonic-clonic seizures, unable to move lower ext, unable to move upper ext, other. Objective Vital Signs and I&Os Vital Signs Date Time Temp Pulse Resp B/P B/P Pulse O2 O2 Flow FiO2 Mean Ox Delivery Rate 02/20 0400 98 Nasal 1.0L Cannula 02/20 0030 98.4 70 18 124/60 96 Nasal 1.0L Cannula 02/20 0000 96 Nasal 1.0L Cannula 02/194 96 Nasal 1.0L Cannula 02/20 2000 96 Nasal 1.0L Cannula 02/19 1600 96 Nasal 1.0L Cannula 02/19 1600 98.4 64 14 100/60 96 Nasal 1.0L Cannula 02/19 1200 99 Nasal 1.0L Cannula 02/19 0830 Nasal 2.0L Cannula 02/19 0817 96 Nasal 2.0L Cannula 02/19 0800 96.9 73 15 108/60 97 Nasal 2.0L Cannula 02/19 0800 95 Nasal 2.0L Cannula Intake & Output 02/20 0800 02/20 0000 02/19 1600 02/19 0800 02/19 0000 02/18 1600 Intake Total 525 013 0314 375 Output Total 380 561 489 2070 Balance 20 260 1440 -635 Intake, IV 210 837 2369 375 Intake, Oral 100 260 Number 0 Bowel Movements Output, Urine 380 571 219 1469 Patient 111 lb 110 lb 103 lb Weight Weight Bed scale Bed scale Measurement Method Physical Exam: HEENT-PERRLA Neck-JVP normal, no bruit Lungs-clear bilaterally Heart-S1S2 regular, no murmur, rub Abdomen-soft, not tender, no organomegaly, no masses Extr-no edema, 2+ pulses, no cyanosis Neuro-speech mildly slurred, mild right UE weakness Current Medications: Current Medications Sig/Suzie Start time Last Medication Dose Route Stop Time Status Admin Acetaminophen 650 MG Q6P PRN 02/19 0045 AC PO Albuterol Sulfate 3 ML EVERY 4 HRS/AWAKE 02/19 0900 AC 02/19 INH 2044 Albuterol Sulfate 3 ML Q6 PRN 02/19 0030 AC 02/19 INH 0034 Aspirin 81 MG DAILY 02/20 1000 AC PO Aspirin 81 MG DAILY 02/19 2200 CAN PO Aspirin 81 MG ONCE ONE 02/19 2200 DC 02/19 PO 02/19 2201 2300 Atorvastatin Calcium 80 MG 1700 02/19 1700 AC 02/19 PO 1705 Budesonide/ 2 PUF BID 02/19 1000 AC 02/19 Formoterol Fumarate INH 2300 Dextrose/Water 1,000 ML ONCE ONE 02/19 2300 AC 02/19 IV 02/20 1859 2303 Sodium Chloride 500 ML BOLUS ONE 02/19 1045 DC 02/19 IV 02/19 1144 1045 Sodium Chloride 500 ML BOLUS ONE 02/19 0915 DC 02/19 IV 02/19 1014 0914 Sodium Chloride 1,000 ML Q13H 02/19 0045 DC 02/19 IV 02/19 8004 1254 Results Last 48 Hrs of Labs/Mics: Laboratory Tests 02/20/17 0420: Anion Gap 4 L, Estimated GFR > 60, Glucose 88, Calcium 8.1 L, Phosphorus 3.9, Magnesium 2.0, Total Bilirubin 0.8, AST 17, ALT 29, Albumin 3.0 L, PT 10.9, INR 1.04, APTT 30, CBC w Diff NO MAN DIFF REQ, RBC 3.90 L, MCV 98.2, MCH 32.4 H, RDW 13.4, MPV 9.0, Gran % 65.7, Lymphocytes % 24.5, Monocytes % 6.8, Eosinophils % 2.4, Basophils % 0.6, Absolute Granulocytes 3.7, Absolute Lymphocytes 1.4, Absolute Monocytes 0.4, Absolute Eosinophils 0.1, Absolute Basophils 0, PUBS MCHC 33.0 02/19/17 2115: Anion Gap 6, Estimated GFR > 60, Glucose 86, Calcium 8.2 L, Phosphorus 4.3, Magnesium 2.0, Total Bilirubin 0.7, AST 20, ALT 28, Troponin I 0.08, Albumin 3.2 L, PT 10.8, INR 1.03, APTT 31, CBC w Diff NO MAN DIFF REQ, RBC 3.99 L, MCV 97.4, MCH 32.1 H, RDW 13.5, MPV 9.2, Gran % 67.8, Lymphocytes % 21.6, Monocytes % 8.2, Eosinophils % 1.7, Basophils % 0.7, Absolute Granulocytes 3.8, Absolute Lymphocytes 1.2, Absolute Monocytes 0.5, Absolute Eosinophils 0.1, Absolute Basophils 0, PUBS MCHC 32.9 L 02/19/171999: Sodium Cancelled, Potassium Cancelled, Chloride Cancelled, Carbon Dioxide Cancelled, Anion Gap Cancelled, BUN Cancelled, Creatinine Cancelled, Glucose Cancelled, Calcium Cancelled, Phosphorus Cancelled, Magnesium Cancelled, Total Bilirubin Cancelled, AST Cancelled, ALT Cancelled, Albumin Cancelled 02/19/17 1542: Troponin I 0.10 02/19/17 0810: Urinalysis LIGHT H, Urine Color YEL, Urine Clarity HAZY H, Urine pH 6.0, Ur Specific [place] 1.015, Urine Protein TRACE H, Urine Ketones NEG, Urine Nitrite NEG, Urine Bilirubin NEG, Urine Urobilinogen 0.2, Ur Leukocyte Esterase NEG, Ur Microscopic SEDIMENT EXAMINED, Urine RBC 50-75 H, Urine WBC RARE, Ur Epithelial Cells RARE, Urine Mucus RARE, Urine Hemoglobin LARGE H, Urine Glucose NEG 02/19/17 0800: Anion Gap 8, Estimated GFR > 60, Glucose 83, Calcium 8.3 L, Phosphorus 4.6 H, Magnesium 2.0, Total Bilirubin 0.7, AST 20, ALT 36, Troponin I 0.14 *H, Albumin 3.7, TSH 0.249 L, Free T4 1.16, PT 10.9, INR 1.04, APTT 29, CBC w Diff NO MAN DIFF REQ, RBC 4.28, MCV 97.9, MCH 32.4 H, RDW 13.7, MPV 8.7, Gran % 66.1, Lymphocytes % 23.6, Monocytes % 7.4, Eosinophils % 2.4, Basophils % 0.5, Absolute Granulocytes 3.4, Absolute Lymphocytes 1.2, Absolute Monocytes 0.4, Absolute Eosinophils 0.1, Absolute Basophils 0, PUBS MCHC 33.1 02/19/17 0248: Troponin I 0.02 02/18/171941: Urine Opiates Screen < 100.00, Methadone Screen < 40, Barbiturate Screen < 60, Ur Phencyclidine Scrn < 6.00, Amphetamines Screen < 100, U Benzodiazepines Scrn < 85, Urine Cocaine Screen < 50, Urine Cannabis Screen < 5.00, Urine Color YEL, Urine Clarity CLEAR, Urine pH 6.0, Ur Specific [place] 1.020, Urine Protein NEG, Urine Ketones TRACE H, Urine Nitrite NEG, Urine Bilirubin NEG, Urine Urobilinogen 0.2, Ur Leukocyte Esterase NEG, Ur Microscopic SEDIMENT EXAMINED, Urine RBC 1-3, Ur Epithelial Cells RARE, Urine Hemoglobin TRACE-INTACT, Urine Glucose NEG 02/18/171929: Anion Gap 9, Estimated GFR 45 L, BUN/Creatinine Ratio 10.0, Glucose 88, Calcium 8.6, Total Bilirubin 0.6, AST 23, ALT 34, Alkaline Phosphatase 131 H, Troponin I < 0.01, Total Protein 6.6, Albumin 4.1, Globulin 2.5, Albumin/Globulin Ratio 1.6, Triglycerides 64, Cholesterol 208 H, LDL Cholesterol, Calc 100, HDL Cholesterol 96 H, Cholesterol/HDL Ratio 2, PT 10.6, INR 1.01, APTT 32, CBC w Diff NO MAN DIFF REQ, RBC 4.54, MCV 97.3, MCH 31.9 H, RDW 13.7, MPV 8.4, Gran % 57.7, Lymphocytes % 30.5, Monocytes % 8.7, Eosinophils % 2.3, Basophils % 0.8, Absolute Granulocytes 3.0, Absolute Lymphocytes 1.6, Absolute Monocytes 0.5, Absolute Eosinophils 0.1, Absolute Basophils 0, PUBS MCHC 32.8 L Recent Imaging Studies: CT head-new left thalamic ischemic stroke Echo-noted Assessment/Plan Assessment/Plan 66 year old female smoker, h/o HTN, pacemaker for CHB presents with new right sided CVA. s/p TPA. Neurologically improved but still mildly slurrred speech, mild right weakness. She has h/o mild cardiomyopathy but echo yesteday showed normal LVEF. There was significant artifact from pacer leads. CXR reviewed, leads most likely in proper postion in RA, RV. CTA head and carotid US did not reveal any significant disease. Suspect emoblic stroke. Pacer interrogated, A-V leads working fine with good sensing and thershold. She had 1 episode of atrial tachycardia 175 bpm for 3 minutes in March 2016, few short runs of NSVT. No evidence of atrial fibrillation. BP controlled off antihypertensive therapy Plan: continue statin ASA as per neurology Transfer to telemetry if OK with neurology will schedule AMY in 1-2 days to evaluated cardiac source of emboli. Continue telemetry? Yes
--- NOTE | 2017-02-20 07:42 | PN- Resident CRCU ---
NANDINI KING,[place] 02/20/17 0742: Subjective HPI/CRCU Issues: Patient seen and examined. She is seen lying on her side in main resting comfortably maintained on supplemental oxygen via nasal cannula. She appears to be in no acute distress. She reports feeling well and denies any new complaints. She does admit that her right hand does feel weak and that her voices is still slurred, but that they are better than when she first experienced her symptoms. Otherwise she denies any blurred/double vision, lightheadedness/dizziness, headache, fever, chills, chest pain/discomfort, palpitations, shortness of breath, nausea, vomiting, diarrhea, or new numbness/tingling/weakness. Objective Vital Signs & I&O Last 8 Hrs of Vitals and I&O: NSR No telemetry events HR 64-80 O2 95-97% on 1.0L o2 via NC RR 11-38 Exam General Appearance: well developed/nourished, no apparent distress, alert, awake Other Physical Findings: General- well developed, well nourished elderly woman in no acute distress HEENT-NCAT, PERRL, EOMI, anicteric sclera, obvious right facial droop, nasal cannula Cardio-S1, S2 w/o m/g/r;RRR Lung-CTA bilaterally Abdomen-Soft, nontender, nondistended, bowel sounds intact -forde catheter in place Neuro-Awake and alert, oriented to person/place/time, slurred speech, sensation/ coordination intact, strength 5/5 in all four extremities, gasp strength reduced in right hand, CN II-XII intact Ext-normal pulses, no cyanosis/clubbing/edema Current Medications: Current Medications Sig/Suzie Start time Last Medication Dose Route Stop Time Status Admin Acetaminophen 650 MG Q6P PRN 02/19 0045 AC PO Albuterol Sulfate 3 ML EVERY 4 HRS/AWAKE 02/19 0900 AC 02/20 INH 0803 Albuterol Sulfate 3 ML Q6 PRN 02/19 0030 AC 02/19 INH 0034 Aspirin 81 MG DAILY 02/20 1000 AC PO Aspirin 81 MG DAILY 02/19 2200 CAN PO Aspirin 81 MG ONCE ONE 02/19 2200 DC 02/19 PO 02/19 2201 2300 Atorvastatin Calcium 40 MG 1700 02/20 170 AC PO Atorvastatin Calcium 80 MG 1700 02/19 1700 DC 02/19 PO 1705 Budesonide/ 2 PUF BID 02/19 1000 AC 02/19 Formoterol Fumarate INH 2300 Dextrose/Water 1,000 ML ONCE ONE 02/19 2300 AC 02/19 IV 02/20 1859 2303 Sodium Chloride 500 ML BOLUS ONE 02/19 1045 DC 02/19 IV 02/19 1144 1045 Sodium Chloride 500 ML BOLUS ONE 02/19 0915 DC 02/19 IV 02/19 1014 0914 Sodium Chloride 1,000 ML Q13H 02/19 0045 DC 02/19 IV 02/19 2344 1254 Impression/Plan Impression/Problem List Impression: 66 year old woman with multiple medical problems significant for COPD, smoking, rheumatic fever, and pacemaker placement possible due to heart block brought in by ambulance for evaluation of right sided weakess, ipsilateral facial droop, and dysarthria. Problem List: -Acute CVA s/p tPa with right sided deficits -History of Pacemaker -History of COPD not on home oxygen -History of rheumatic fever -Current everyday smoker Patient has marked improvement of her right sided weakness; with exception of her gasp strength in her right upper extremity. She continues to have dysarthria and right sided facial droop. CT imaging demonstrated a new area of hypoattenuation within the left thalamus presumed to be an evolving infarction. She admits to new 'double vision' but has no visual field deficits; her eyes do not follow however. She remains on a aspirin/statin. She is unable to have an MRI due to her pacemaker. She remains on supplemental oxygen which will be tapered off today; forde catheter remains in place. PT/OT will work with patient once the patient is more stable on their feet and is cleared by neurology. She is to be kept NPO overnight in anticipation of a AMY tomorrow morning. She is considered stable from an ICU perspective and is to be downgraded to telemetry. Plan: -ICU -Forde catheter -Supplemental oxygen, goal > 92 %, taper as tolerated -TRC with Nebs PRN -Continue Aspirin / Atorvastatin -Neuro / Cardio following -NPO For AMY -PT/OT evaluation -FULL CODE -F/U AMY Problem List: 1. CVA (cerebral vascular accident) Pain Ratin Tomorrow's Labs & Rationales: CBC BEP MADHU FARFAN MD 02/20/17 0927: Impression/Plan Plan DVT/Prophylaxis: mechanical Attending MD Review Statement Attending Sign Off Attending Cosign Statement: I have: examined this patient, reviewed avalbl EMR data, personally reviewd images, discussd w/resident/PA/ASSISTANT TEACHING PROFESSOR, discussed mgmt plan w/zenaida, discussed mgmt plan w/CM, discussed mgmt plan w/pt, agreed w/resident/PA/ASSISTANT TEACHING PROFESSOR, amended to note. Other Findings: I, Madhu Farfan M.D. have examined this patient, reviewed available EMR data, personally reviewed images, discussed with resident/PA/ASSISTANT TEACHING PROFESSOR, discussed management plan with housestaff and nursing staff, discussed managment plan all of healthcare providers, discussed management plan with patient and/or family, agreed with resident/PA/ASSISTANT TEACHING PROFESSOR. The past history and parts of the chart have been autopopulated. Impression 66 year old woman * acute ischemic CVA - right sided paresis * s/p tpa * htn * tobacco dependence hx Plan -neurology and cardiology appreciated -monitor hemodynamics and neuro checks -repeat imaging per neuro -bp control -cont statin -AMY consideration per cardiology DVT prophylaxis at all times TTS 35 min DG to tele
[2017-02-20 08:00] VITALS: BP 128/72
--- NOTE | 2017-02-20 10:13 | NUR ---
PT C/O DOUBLE VISION THAT JUST STARTED, VSS, NO OTHER COMPLAINTS, MD NOTIFIED, WILL CONT TO MON.
--- NOTE | 2017-02-20 13:17 | NUR ---
PHYSICAL THERAPY. PT EVALUATION DEFERRED AT THIS TIME / HEAD CT FROM 02/19/17 DEMONSTRATING NEW EVOLVING INFARCT L THALAMUS AND Pt REPORTING NEW ONSET OF DIPLOPIA TODAY. DISCUSSED W/ RESIDENT AND RN. NEURO IS TO RE-EVALUATE Pt, WILL COMPLETE PT EVALUATION ONCE CLEARED BY NEURO.
--- NOTE | 2017-02-20 16:04 | PN- Neurology ---
Subjective Subjective: No complaints. No major change in status since yesterday Review of Systems: denied headache, SOB, chest pain Objective Vital Signs and I&Os Vital Signs Date Time Temp Pulse Resp B/P B/P Pulse O2 O2 Flow FiO2 Mean Ox Delivery Rate 02/20 1427 94 Room Air 02/20 0815 96 Nasal 1.0L Cannula 02/20 0800 99 Nasal 1.0L Cannula 02/20 0800 97.3 66 23 128/72 99 Nasal 1.0L Cannula 02/20 0400 98 Nasal 1.0L Cannula 02/20 0030 98.4 70 18 124/60 96 Nasal 1.0L Cannula 02/20 0000 96 Nasal 1.0L Cannula 02/19 2044 96 Nasal 1.0L Cannula 02/19 2000 96 Nasal 1.0L Cannula 02/19 1600 96 Nasal 1.0L Cannula 02/19 1600 98.4 64 14 100/60 96 Nasal 1.0L Cannula Intake & Output 02/20 1600 02/20 0800 02/20 0000 02/19 1600 02/19 0800 02/19 0000 Intake Total 700 343 414 9942 375 Output Total 1450 380 601 838 2042 Balance -750 20 260 1440 -635 Intake, IV 400 191 068 8585 375 Intake, Oral 300 100 260 Number 0 Bowel Movements Output, Urine 1450 380 591 800 9035 Patient 111 lb 110 lb 103 lb Weight Weight Bed scale Bed scale Measurement Method Physical Exam: Awake, speech dysarthic, but understandable EOMs abnormal - longstanding VFF P3ERRL face less assymmetric, right lower face weak right hand doctor of naprapathic medicine 4+/5 confused, oriented only to name and hospital not date, reason for admission or length of stay. follows simple commands Current Medications: Current Medications Sig/Suzie Start time Last Medication Dose Route Stop Time Status Admin Acetaminophen 650 MG Q6P PRN 02/19 0045 AC PO Albuterol Sulfate 3 ML EVERY 4 HRS/AWAKE 02/19 0900 AC 02/20 INH 1151 Albuterol Sulfate 3 ML Q6 PRN 02/19 0030 AC 02/19 INH 0034 Aspirin 81 MG DAILY 02/20 1000 AC 02/20 PO 1005 Aspirin 81 MG DAILY 02/19 2200 CAN PO Aspirin 81 MG ONCE ONE 02/19 2200 DC 02/19 PO 02/19 2201 2300 Atorvastatin Calcium 40 MG 1700 02/20 1700 AC PO Atorvastatin Calcium 80 MG 1700 02/19 1700 DC 02/19 PO 1705 Budesonide/ 2 PUF BID 02/19 1000 AC 02/20 Formoterol Fumarate INH 1005 Dextrose/Water 1,000 ML ONCE ONE 02/19 2300 AC 02/19 IV 02/20 1859 2303 Sodium Chloride 1,000 ML Q13H 02/19 0045 DC 02/19 IV 02/19 2344 1254 Results Last 24 Hours of Lab Results: Laboratory Tests 02/20 02/19 0420 2115 Chemistry Sodium (137 - 145 mmol/L) 140 141 Potassium (3.5 - 5.1 mmol/L) 4.3 4.6 Chloride (98 - 107 mmol/L) 105 104 Carbon Dioxide (22 - 30 mmol/L) 31 H 31 H Anion Gap (5 - 16) 4 L 6 BUN (7 - 17 mg/dL) 14 15 Creatinine (0.5 - 1.0 mg/dL) 0.6 0.7 Estimated GFR (>60 ml/min) > 60 > 60 Glucose (65 - 99 mg/dL) 88 86 Calcium (8.4 - 10.2 mg/dL) 8.1 L 8.2 L Phosphorus (2.5 - 4.5 mg/dL) 3.9 4.3 Magnesium (1.6 - 2.3 mg/dL) 2.0 2.0 Total Bilirubin (0.2 - 1.3 mg/dL) 0.8 0.7 AST (14 - 36 U/L) 17 20 ALT (9 - 52 U/L) 29 28 Troponin I (< 0.11 ng/ml) 0.08 Albumin (3.5 - 5.0 g/dL) 3.0 L 3.2 L Coagulation PT (9.4 - 12.5 SEC) 10.9 10.8 INR (0.90 - 1.19) 1.04 1.03 APTT (25 - 37 SEC) 30 31 Hematology CBC w Diff NO MAN DIFF REQ NO MAN DIFF REQ WBC (4.8 - 10.8 /CUMM) 5.7 5.6 RBC (4.20 - 5.40 /CUMM) 3.90 L 3.99 L Hgb (12.0 - 16.0 G/DL) 12.6 12.8 Hct (37 - 47 %) 38.3 38.8 MCV (81.0 - 99.0 FL) 98.2 97.4 MCH (27.0 - 31.0 PG) 32.4 H 32.1 H RDW (11.5 - 14.5 %) 13.4 13.5 Plt Count (130 - 400 /CUMM) 134 149 MPV (7.4 - 10.4 FL) 9.0 9.2 Gran % (42.2 - 75.2 %) 65.7 67.8 Lymphocytes % (20.5 - 51.1 %) 24.5 21.6 Monocytes % (1.7 - 9.3 %) 6.8 8.2 Eosinophils % (0 - 5 %) 2.4 1.7 Basophils % (0.0 - 2.0 %) 0.6 0.7 Absolute Granulocytes (1.4 - 6.5 /CUMM) 3.7 3.8 Absolute Lymphocytes (1.2 - 3.4 /CUMM) 1.4 1.2 Absolute Monocytes (0.10 - 0.60 /CUMM) 0.4 0.5 Absolute Eosinophils (0.0 - 0.7 /CUMM) 0.1 0.1 Absolute Basophils (0.0 - 0.2 /CUMM) 0 0 PUBS MCHC (33.0 - 37.0 G/DL) 33.0 32.9 L 02/20 2000 Chemistry Sodium Cancelled Potassium Cancelled Chloride Cancelled Carbon Dioxide Cancelled Anion Gap Cancelled BUN Cancelled Creatinine Cancelled Glucose Cancelled Calcium Cancelled Phosphorus Cancelled Magnesium Cancelled Total Bilirubin Cancelled AST Cancelled ALT Cancelled Albumin Cancelled Recent Imaging Studies: CT 24H follow-up: FINDINGS: There is no acute intracranial hemorrhage. Within the left thalamus there is a new area of hypoattenuation measuring 1.6 x 1.1 cm (image 23, series 2).. No abnormal mass effect or midline shift is seen. Lim to white matter differentiation is well preserved. No extra-axial fluid collections are identified. The ventricles are normal in size. There is no other abnormal attenuation within the brain parenchyma. The osseous structures and soft tissues are normal. The visualized portions of the paranasal sinuses and mastoid air cells appear well. Aside from partial opacification within the left sphenoid sinus. IMPRESSION: 1. New area of hypoattenuation within the left thalamus, presumably evolving infarction. 2. No acute intracranial hemorrhage. Carotid US: normal Echo: Normal left ventricular ejection fraction visually estimated at 60 Dyskinetic septum due to paced rhythm. Moderate thickening/calcification of the anterior mitral valve leaflet. Mild mitral regurgitation. Diffuse thickening (sclerosis) of the aortic valve cusps without reduced excursion. Mild aortic regurgitation. Trace tricuspid regurgitation. Right ventricular systolic pressure estimated at 20 mmHg. Pacemaker leads are probably in proper position in the right atrium and ventricle. There appears to be acoustic artifact in the left ventricle. Will obtain additional images of the pacer leads with limited transthoracic study. Assessment/Plan Assessment: CVA, CT on day 2 showing area of infarction,(initial CT still normal) clinically improved from presentation with stable deficits: dysarthria, right hand weakness, and cognitive changes. now on ASA and statin. Echo and dopplers OK, NSR on telemetry Plan: Ok to transfer out of ICU start getting pt sitting up, OOB with attention to BP as is running low hydration Speech/language therapy OT-PT continue current meds no additional neurodiagnostic testing at this time neuro-rehab consult: John Pappas or Tracy call back if problems arise, I will be away but Dr. Sloan available if further neurology input needed
[2017-02-20 16:21] VITALS: BP 120/66
[2017-02-20 22:00] VITALS: BP 120/76
--- NOTE | 2017-02-21 07:16 | PN- Housestaff ---
See Addendum Subjective Follow-up For: CVA s/p tpa Subjective: Seen and examined at [facility]. s/p tpa 60hrs ago. Does not complain of any new or worsening focal deficits. Pt speech markedly improved, slight right facial droop still residual. No acute o/n event reported by laursing staff. [facility] N[facility] at around 10 am today. Review of Systems Constitutional: Reports: see HPI. Objective Last 24 Hrs of Vital Signs/I&O Vital Signs Date Time Temp Pulse Resp B/P B/P Pulse O2 O2 Flow FiO2 Mean Ox Delivery Rate 02/21 0907 95 Room Air 02/21 0800 Room Air 02/21 0734 97.9 76 18 106/62 92 Room Air 02/21 0000 Room Air 02/20 2200 98.7 85 18 120/76 91 Room Air 02/20 2010 93 Room Air Room Air 02/20 1621 98.1 75 18 120/66 93 Room Air 02/20 1427 94 Room Air Intake & Output 02/21 1600 02/21 0800 02/21 0000 Intake Total 440 Output Total 1250 600 Balance -1250 -160 Intake, IV 20 Intake, Oral 420 Output, Urine 1250 600 Physical Exam General Appearance: Alert, Oriented X3, Cooperative Cardiovascular: Regular Rate, Normal S1, Normal S2 Lungs: Clear to Auscultation, Normal Air Movement Abdomen: Normal Bowel Sounds, Soft, No Tenderness Neurological: markedly improved speech with minimal reisdual dysarthia. Right sided strength of U/L also markedly improved 4/5 . left sided strength U/L extremities intact 5/5. Sensation intact on face and b/l u/l extremities. Assessment/Plan Assessment: This is a 66 year old woman with multiple medical problems significant for COPD, smoking, rheumatic fever, and pacemaker placement possible due to heart block brought in by ambulance for evaluation of acute onset right sided weakess, ipsilateral facial droop, and dysarthria. Received Problem List: -Acute CVA s/p tPa with right sided deficits -History of Pacemaker -History of COPD not on home oxygen -History of rheumatic fever -Current everyday smoker S/p tpa 2 days ago. Patient has marked improvement of her right sided weakness; with no new focal deficits. She continues to have dysarthria and right sided facial droop but markedly improved compared to pre tpa period. CT imaging demonstrated a new area of hypoattenuation within the left thalamus presumed to be an evolving infarction. She is unable to have an MRI due to her pacemaker. Carotid doppler/CTA neck unremarkable, TTE did not show valvular pathologies, pacemaker was unremarkable for any aryythmias. She is medically optimized with statin and ASA 81mg. Nicotine patch is on. PT/OT will work with patient once the patient is more stable on their feet and is cleared by neurology. She is to be kept NPO overnight in anticipation of a AMY tomorrow morning to assess left atrial appendage. Disposition: STR at either [facility] or [facility]. Problem List: 1. CVA (cerebral vascular accident) Pain Ratin Pain Location: none Pain Goal: Remain pain free Pain Plan: per pathway Tomorrow's Labs & Rationales: cbc Consulting Request: Consulting Specialty: Neurology Consulting Physician: Dr. Guajardo Reason for Consult: cva
[2017-02-21 07:34] VITALS: BP 106/62
--- NOTE | 2017-02-21 07:41 | PN- Cardiology ---
Subjective Subjective: Feels OK, speech improved. Wants to start walking. Objective Vital Signs and I&Os Vital Signs Date Time Temp Pulse Resp B/P B/P Pulse O2 O2 Flow FiO2 Mean Ox Delivery Rate 02/21 0734 97.9 76 18 106/62 92 Room Air 02/21 0000 Room Air 02/20 2200 98.7 85 18 120/76 91 Room Air 02/20 2010 93 Room Air Room Air 02/20 1621 98.1 75 18 120/66 93 Room Air 02/20 1427 94 Room Air 02/20 0815 96 Nasal 1.0L Cannula 02/20 08 99 Nasal 1.0L Cannula 02/20 0800 97.3 66 23 128/72 99 Nasal 1.0L Cannula Intake & Output 02/21 0800 02/21 0000 02/20 1600 02/20 0800 02/20 0000 02/19 1600 Intake Total 440 700 327 230 6601 Output Total 3803 108 4657 380 640 270 Balance -1250 -160 -750 20 260 1440 Intake, IV 20 400 587 795 4847 Intake, Oral 420 300 100 260 Number 0 Bowel Movements Output, Urine 0492 447 8739 380 640 270 Patient 111 lb 111 lb Weight Weight Bed scale Measurement Method Physical Exam: Neck-JVP normal, no bruit Lungs-clear bilaterally Heart-S1S2 regular,no murmur Abdomens-soft, not tender, BS+, no organomegaly Extr-no edema, 2+ pulses Neuro-speech improved, right weakness improved too Current Medications: Current Medications Sig/Suzie Start time Last Medication Dose Route Stop Time Status Admin Acetaminophen 650 MG Q6P PRN 02/19 0045 AC PO Albuterol Sulfate 3 ML BID 02/20 220 AC 02/20 INH 2009 Albuterol Sulfate 3 ML EVERY 4 HRS/AWAKE 02/19 0900 DC 02/20 INH 1151 Albuterol Sulfate 3 ML Q6 PRN 02/19 0030 AC 02/19 INH 0034 Aspirin 81 MG DAILY 02/20 1000 AC 02/20 PO 1005 Atorvastatin Calcium 40 MG 1700 02/20 1700 AC 02/20 PO 1800 Atorvastatin Calcium 80 MG 1700 02/19 1700 DC 02/19 PO 1705 Budesonide/ 2 PUF BID 02/19 1000 AC 02/20 Formoterol Fumarate INH 1005 Dextrose/Water 1,000 ML ONCE ONE 02/19 2300 DC 02/19 IV 02/20 861 2303 Results Last 48 Hrs of Labs/Mics: Laboratory Tests 02/20/17 0420: Anion Gap 4 L, Estimated GFR > 60, Glucose 88, Calcium 8.1 L, Phosphorus 3.9, Magnesium 2.0, Total Bilirubin 0.8, AST 17, ALT 29, Albumin 3.0 L, PT 10.9, INR 1.04, APTT 30, CBC w Diff NO MAN DIFF REQ, RBC 3.90 L, MCV 98.2, MCH 32.4 H, RDW 13.4, MPV 9.0, Gran % 65.7, Lymphocytes % 24.5, Monocytes % 6.8, Eosinophils % 2.4, Basophils % 0.6, Absolute Granulocytes 3.7, Absolute Lymphocytes 1.4, Absolute Monocytes 0.4, Absolute Eosinophils 0.1, Absolute Basophils 0, PUBS MCHC 33.0 02/19/17 2115: Anion Gap 6, Estimated GFR > 60, Glucose 86, Calcium 8.2 L, Phosphorus 4.3, Magnesium 2.0, Total Bilirubin 0.7, AST 20, ALT 28, Troponin I 0.08, Albumin 3.2 L, PT 10.8, INR 1.03, APTT 31, CBC w Diff NO MAN DIFF REQ, RBC 3.99 L, MCV 97.4, MCH 32.1 H, RDW 13.5, MPV 9.2, Gran % 67.8, Lymphocytes % 21.6, Monocytes % 8.2, Eosinophils % 1.7, Basophils % 0.7, Absolute Granulocytes 3.8, Absolute Lymphocytes 1.2, Absolute Monocytes 0.5, Absolute Eosinophils 0.1, Absolute Basophils 0, PUBS MCHC 32.9 L 02/19/171999: Sodium Cancelled, Potassium Cancelled, Chloride Cancelled, Carbon Dioxide Cancelled, Anion Gap Cancelled, BUN Cancelled, Creatinine Cancelled, Glucose Cancelled, Calcium Cancelled, Phosphorus Cancelled, Magnesium Cancelled, Total Bilirubin Cancelled, AST Cancelled, ALT Cancelled, Albumin Cancelled 02/19/17 1542: Troponin I 0.10 02/19/17 0810: Urinalysis LIGHT H, Urine Color YEL, Urine Clarity HAZY H, Urine pH 6.0, Ur Specific [place] 1.015, Urine Protein TRACE H, Urine Ketones NEG, Urine Nitrite NEG, Urine Bilirubin NEG, Urine Urobilinogen 0.2, Ur Leukocyte Esterase NEG, Ur Microscopic SEDIMENT EXAMINED, Urine RBC 50-75 H, Urine WBC RARE, Ur Epithelial Cells RARE, Urine Mucus RARE, Urine Hemoglobin LARGE H, Urine Glucose NEG 02/19/17 0800: Anion Gap 8, Estimated GFR > 60, Glucose 83, Calcium 8.3 L, Phosphorus 4.6 H, Magnesium 2.0, Total Bilirubin 0.7, AST 20, ALT 36, Troponin I 0.14 *H, Albumin 3.7, TSH 0.249 L, Free T4 1.16, PT 10.9, INR 1.04, APTT 29, CBC w Diff NO MAN DIFF REQ, RBC 4.28, MCV 97.9, MCH 32.4 H, RDW 13.7, MPV 8.7, Gran % 66.1, Lymphocytes % 23.6, Monocytes % 7.4, Eosinophils % 2.4, Basophils % 0.5, Absolute Granulocytes 3.4, Absolute Lymphocytes 1.2, Absolute Monocytes 0.4, Absolute Eosinophils 0.1, Absolute Basophils 0, PUBS MCHC 33.1 Assessment/Plan Assessment/Plan 66 year old female smoker, h/o HTN, pacemaker for CHB presents with new right sided CVA. s/p TPA. Neurologically improved. She has h/o mild cardiomyopathy but echo yesteday showed normal LVEF. There was significant artifact from pacer leads. CXR reviewed, leads most likely in proper postion in RA, RV. CTA head and carotid US did not reveal any significant disease. Suspect emoblic stroke. Pacer interrogated, A-V leads working fine with good sensing and thershold. She had 1 episode of atrial tachycardia 175 bpm for 3 minutes in March 2016, few short runs of NSVT. No evidence of atrial fibrillation. BP controlled off antihypertensive therapy Plan: continue statin ASA AMY today to evaluate cardiac source of emboli. PT/OT/ambulation Continue telemetry? Yes
[2017-02-21 08:32] LABS: ABSOLUTE BASOPHIL COUNT 0 /CUMM (0.0-0.2); ABSOLUTE EOSINOPHIL COUNT 0.2 /CUMM (0.0-0.7); ABSOLUTE GRANULOCYTE CT 3.7 /CUMM (1.4-6.5); ABSOLUTE LYMPH COUNT 1.2 /CUMM (1.2-3.4); ABSOLUTE MONOCYTE COUNT 0.4 /CUMM (0.10-0.60); BASOPHIL % 0.6 % (0.0-2.0); EOSINOPHIL % 2.9 % (0-5); GRANULOCYTE % 66.9 % (42.2-75.2); HEMATOCRIT 38.9 % (37-47); MEAN CORPUSCULAR HGB CONC 33.1 G/DL (33.0-37.0); MEAN CORPUSCULAR VOLUME 96.8 FL (81.0-99.0); MEAN PLATELET VOLUME 8.6 FL (7.4-10.4); PLATELET COUNT 142 /CUMM (130-400); RBC DISTRIBUTION WIDTH 13.4 % (11.5-14.5); RED BLOOD CELL CT 4.02 /CUMM (4.20-5.40); WHITE BLOOD CELL COUNT 5.5 /CUMM (4.8-10.8)
--- NOTE | 2017-02-21 13:28 | Discharge Summary ---
Visit Information Visit Dates Admission Date: 02/18/17 Discharge Date: 02/23/2017 Hospital Course Course Attending Physician: KAM LOBO MD Primary Care Physician: WELLINGTON KING,RENAE Reinoso Consulting Request: Consulting Specialty: Neurology Consulting Physician: Dr. Guajardo Reason for Consult: cva Hospital Course: This is a 66 yo lady with PMHx of HTN, s/p pacemaker 2004, rheumatic fever at the age of 14 years, and active smoker was brought in by family for acute onset of right sided weakness. As per the EMS, she developed sudden onset of right- sided arm and leg weakness, right sided facial droop, and difficulty speaking, 20 minutes prior to arrival, while she was doing dishes. There was no reported recent trauma, operations, or other precipitating events. Hx was limited as patient is aphasic, ROS is limited. Vitals: T max 98.7, HR on arrival 103, improved to 80s, RR 18-20, blood pressure 149/89 upon arrival stabilized around 120s/75 saturating 96% on 2 L nasal cannula On exam: Alert, partially aphasic, not oriented, mild respiratory distress, no JVD, right-sided gaze palsy, right facial droop, 2/5 strength RUL and RLL, reflexes +3 on right side, up growing plantars left-sided strength intact. Pupils equal 2 mm bilaterally reactive. cooperative, neck supple, mucosa dry, no dependent edema, no obvious skin rashes or inflammation CVS: S1-S2, RRR pacemaker left side. RS: Bilateral extensive wheezing. Abdomen: Soft, NT, ND, bowel sounds present. Labs: CBC unremarkable, sodium 140, potassium 4.8, chloride 100, bicarbonate 31, BUN 12, creatinine 1.2, and ag 9, glucose 88, calcium 8.6, AST 23, ALT 34, bilirubin 0.6, alkaline phosphatase 131, troponin less than 0.01, albumin 4.1, INR 1.01 UA unremarkable U tox pending CT chest head: The study is degraded by patient motion. No acute intracranial pathology. CXR: No acute pulmonary disease. CT HEAD ANGIOGRAM; CT NECK ANGIOGRAM: Normal CTA of the head and neck EKG: Ventricular paced rhythm Stroke alert had been activated and with reccomendations of neurologist, tpa was administered and patient was transferred to ICU for post tpa monitoring. Improvement of focal deficits and dysarthia were noted post tpa. Pt was then downgraded to Telemetry. The following issues were addressed during hospital stay: #CVA Right sided weakness with dysarthia and right sided facial droop in the setting of CT head finding of hypoattenuation area of the left thalamus (Repeat CT post 24 hrs).Due to pacemaker, pt was not a candidate for MRI. Received tpa per protocool as she was well within the window. Neuro checks q 2hr did not show any deterioration of neurological status, no acute tpa complication were noted in the first 24hours while patient was being monitored at ICU. Pt was started on a statin and 24 hour post tpa with confirmation of no hemorrhage on CT head scan , Aspirin 81mg was also initiated. Marked improvement of patients right sided deficits were noted in subsequent days post tpa. Patient passed a bedside swallow eval on admission and a formal swallow eval by speech therapy on the following day, she was put on mechanical soft with thin liquid diet. CTA head and neck/carotid duppler were unremarkable for any significant stenosis/ atherosclerosis. Pacemaker interrogation by [employer] did not show any arrythmias for the past 3-4 months. Telemetry monitoring did not show new arrythmias during hospital stay. TTE was unremarkable, a AMY was ordered which showed the following findings: 1. 0.5 x 0.6 cm mobile echogenic target attached to the pacemaker lead which may represent thrombus vs vegetation. 2 There is possible small thrombus at the base of the left atrial appendage. 3. Saline bubble study reveals patent foramen ovale. Based on cardiology reccomendation with consultation with neurology, pt was started on Pradaxa 75 mg po bid (this anticoagulant was chosen due to its reversibility) and ASA was stopped. Pt was instructed to f/u with Dr Cooper ( cardiology) within 1-2 week regarding course of anticoagulation. During discharge date, Neurology was consulted for discharge reccomendation and Dr Mahan stated that patient did not require Aspirin and Pradaxa was adequate. #Other chronic diseases. On discharge, her Valasartan was held due to borderline hypotension. Blood pressure control is critical for this patient to prevent further strokes, therefore BP med should be immediately restarted once patient is no longer borderline hypotensive. #Disposition: Pt underwent PT/OT with improvements seen during subsequent days. Reccomendation was patient still had residual deficits that impaired her ADLs and mobility and will therefore benefit from STR vs Acute rehab Allergies: Coded Allergies: NO KNOWN ALLERGIES (06/03/11) Significant Procedures: SERVICE DATE: 02/21/17- EXAM TYPE: CARD - TRANSESOPHAGEAL ECHO MIRIAM BELTRAN Age: 66 : Gender: F Exam Date: 02/21/2017 09:55 Exam Location: [address] [place] [address] Ht (in): 64 Wt (lb): 111 BSA: 1.50 BP: 128 / 72 Ordering Physician: VIRGINIA DELATORRE MD Referring Physician: VIRGINIA DELATORRE MD Technologist: Rebel Ocampo [facility] Room Number: 179 Indications: SOURCE OF EMBOLUS Rhythm: ventricular pacing Technical Quality: Good Medications Profofol Ease of Transducer Insertion No Difficulty Complications none Technical Difficulty no difficulty FINDINGS Left Ventricle Normal size left ventricle. Normal left ventricular ejection fraction visually estimated at >60%. Normal left ventricular wall motion. Right Ventricle Normal right ventricular size and function. Pacemaker lead is seen extending from the right atrium into the right ventricle. There is a 0.5 x 0.6 cm mobile echogenic target attached to the pacemaker lead which may represent thrombus vs. vegetation. Right Atrium Normal right atrial size. Left Atrium Normal left atrial size. LA Appendage There is possible small thrombus at the base of the left atrial appendage. IA Septum Saline bubble study reveals patent foramen ovale. Mitral Valve Mitral valve thickened. Mild mitral regurgitation. Aortic Valve Aortic valve is mildly thickened. No aortic stenosis. Mild aortic regurgitation. Tricuspid Valve Structurally normal tricuspid valve. Mild tricuspid regurgitation. Pulmonic Valve Structurally normal pulmonic valve. Pericardium No pericardial effusion. Great Vessels Normal size aortic root. CONCLUSIONS Normal right ventricular size and function. Pacemaker lead is seen extending from the right atrium into the right ventricle. There is a 0.5 x 0.6 cm mobile echogenic target attached to the pacemaker lead which may represent thrombus vs vegetation.There is possible small thrombus at the base of the left atrial appendage. Saline bubble study reveals patent foramen ovale. Mild mitral regurgitation. Mild aortic regurgitation. Mild tricuspid regurgitation. Romel Baker M.D. (Electronically Signed) Final Date: 21 February 2017 17:06 MEASUREMENTS (Male / Female) Normal Values DICTATED BY: ROMEL BAKER MD SERVICE DATE: 02/19/17- EXAM TYPE: CAT - CT HEAD WO IV CONTRAST EXAMINATION: CT HEAD WITHOUT CONTRAST CLINICAL INFORMATION: Status post TPA. Question bleed. History of right hemiparesis COMPARISON: CT head 02/18/2017 TECHNIQUE: Contiguous axial imaging was performed from the skull base to vertex without intravenous administration of contrast. DLP: 683.1 mGy-cm FINDINGS: There is no acute intracranial hemorrhage. Within the left thalamus there is a new area of hypoattenuation measuring 1.6 x 1.1 cm (image 23, series 2).. No abnormal mass effect or midline shift is seen. Lim to white matter differentiation is well preserved. No extra-axial fluid collections are identified. The ventricles are normal in size. There is no other abnormal attenuation within the brain parenchyma. The osseous structures and soft tissues are normal. The visualized portions of the paranasal sinuses and mastoid air cells appear well. Aside from partial opacification within the left sphenoid sinus. IMPRESSION: 1. New area of hypoattenuation within the left thalamus, presumably evolving infarction. 2. No acute intracranial hemorrhage. 3. Partial opacification of the left sphenoid sinus. DICTATED BY: HERNANDEZ VELEZ MD SERVICE DATE: 02/18/17 EXAM TYPE: CAT - CT HEAD ANGIOGRAM; CT NECK ANGIOGRAM EXAMINATION: CT ANGIOGRAM CAROTID - NECK AND BRAIN CLINICAL INFORMATION: Stroke. COMPARISON: CT head today TECHNIQUE: Test bolus sequences followed by intravenous administration 120 mL of Optiray 350. Helical imaging was performed in the axial plane from the mediastinum to the vertex. The data was processed at the fiber technologist workstation for generation of MIP sequences. No off site 3-D images performed. Workstation. FINDINGS: Normal examination. The origins of the great vessels are normal. The proximal subclavian arteries are normal. The origin of the right common carotid artery is normal. The right common carotid artery, carotid bifurcation and internal carotid artery is normal. The left common carotid artery, carotid bifurcation and internal carotid artery is normal. The origins of the vertebral arteries are normal. The vertebral arteries, basilar artery and their branches are normal. The [place] and cerebral arteries are normal. The CT of the brain is normal. No abnormal enhancement. The soft tissues of the neck are normal. There is emphysematous changes of lung. There is mild multilevel degenerative spondylosis of cervical spine. Small focus of mucosal thickening in the posterior left sphenoid sinus. IMPRESSION: Normal CTA of the head and neck DICTATED BY: RENAE MANNING MD Disposition Summary Disposition Principal Diagnosis: CVA Additional Diagnosis: ATRIAL THROMBUS AND PFO. Discharge Disposition: SNF Discharge Instructions General Discharge Information Code Status: Full Code Patient's Diet: MECHANICAL SOFT WITH THIN LIQUIDS Patient's Activity: TOLERATED Follow-Up Instructions/Appts: Pt is to follow up with pipe foreman in 1 week Pt is to follow up with PCP within 1 week Medications at Discharge Discharge Medications: Stop taking the following medications: Valsartan (Diovan) 40 MG TABLET ORAL DAILY Qty = 90 Continue taking these medications: Albuterol Sulfate (Ventolin Hfa) 90 MCG HFA.AER.AD 2 Puff Inhale through mouth As Directed as needed for RESPIRATORY Qty = 18 Comments: NOT GIVEN IN HOSPITAL Budesonide/Formoterol Fumarate (Symbicort 80-4.5 Mcg Inhaler) 80 MCG-4.5 MCG/ ACTUATION HFA.AER.AD 2 Puff Inhale through mouth TWICE DAILY Qty = 1 Comments: Last Taken: 02/23/17 Time: 10:45 AM Start taking the following new medications: Dabigatran (Pradaxa) 75 MG CAPSULE 75 Milligram ORAL TWICE DAILY Qty = 60 No Refills Comments: Last Taken: 02/23/17 Time: 10:45 AM Atorvastatin Calcium (Atorvastatin Calcium) 40 MG TABLET 40 Milligram ORAL 5 PM Qty = 30 No Refills Comments: Last Taken: 02/23/17 Time: 5:45 PM Docusate Sodium (Docusate Sodium) 100 MG CAPSULE 100 Milligram ORAL TWICE DAILY as needed for CONSTIPATION Qty = 60 No Refills Comments: Last Taken: 02/23/17 Time: 12:00 AM Polyethylene Glycol 3350 (Miralax) 17 GRAM/DOSE POWDER 17 Gram ORAL DAILY as needed for CONSTIPATION Qty = 1 No Refills Comments: Last Taken: 02/22/17 Time: 12:45 PM Copies To: WELLINGTON KING,RENAE Reinoso; MACK KING,HAYDEN Attending MD Review Statement Documenting Attending: KAM LOBO MD Other Findings: 66 year old female smoker, h/o HTN, pacemaker for CHB presents with new right sided CVA. transferred from ICU to telemetry when she was diagnosed with acute stroke s/p tpa intervention in ER, with minimal right sided residual deficits. No evidence of AF by pacer interrogation. AMY suggestive of possible small thrombus on pacer lead, PFO, ?small thrombus in the inferior portion of FAITH. Cardiology recommend anticoagualtion with pradaxa and d/wed patient/family. Neurology Dr Sloan recommend No ASA at d/c, PT eval, tolerating PO, fall precautions. Patient discharged to [facility] as per PT recommendations. Medically stable. F/u O/p PCP in 1 week of d/c. F/U Cardiology in 2 weeks of d/c. Continue follow BP and adjust meds accordingly.
[2017-02-21 14:54] VITALS: BP 90/48
[2017-02-21 14:56] VITALS: BP 118/70
--- NOTE | 2017-02-21 17:07 | ECHOCARDIOGRAM REPORT ---
MIRIAM BELTRAN Age: 66 : Gender: F Exam Date: 02/21/2017 09:55 Exam Location: [address] Ht (in): 64 Wt (lb): 111 BSA: 1.50 BP: 128 / 72 Ordering Physician: VIRGINIA DELATORRE MD Referring Physician: VIRGINIA DELATORRE MD Technologist: Rebel Ocampo G[facility] Room Number: 179 Indications: SOURCE OF EMBOLUS Rhythm: ventricular pacing Technical Quality: Good Medications Profofol Ease of Transducer Insertion No Difficulty Complications none Technical Difficulty no difficulty FINDINGS Left Ventricle Normal size left ventricle. Normal left ventricular ejection fraction visually estimated at >60%. Normal left ventricular wall motion. Right Ventricle Normal right ventricular size and function. Pacemaker lead is seen extending from the right atrium into the right ventricle. There is a 0.5 x 0.6 cm mobile echogenic target attached to the pacemaker lead which may represent thrombus vs. vegetation. Right Atrium Normal right atrial size. Left Atrium Normal left atrial size. LA Appendage There is possible small thrombus at the base of the left atrial appendage. IA Septum Saline bubble study reveals patent foramen ovale. Mitral Valve Mitral valve thickened. Mild mitral regurgitation. Aortic Valve Aortic valve is mildly thickened. No aortic stenosis. Mild aortic regurgitation. Tricuspid Valve Structurally normal tricuspid valve. Mild tricuspid regurgitation. Pulmonic Valve Structurally normal pulmonic valve. Pericardium No pericardial effusion. Great Vessels Normal size aortic root. CONCLUSIONS Normal right ventricular size and function. Pacemaker lead is seen extending from the right atrium into the right ventricle. There is a 0.5 x 0.6 cm mobile echogenic target attached to the pacemaker lead which may represent thrombus vs vegetation.There is possible small thrombus at the base of the left atrial appendage. Saline bubble study reveals patent foramen ovale. Mild mitral regurgitation. Mild aortic regurgitation. Mild tricuspid regurgitation. Romel Andrade M.D. (Electronically Signed) Final Date: 21 February 2017 17:06 MEASUREMENTS (Male / Female) Normal Values
--- NOTE | 2017-02-21 19:32 | Event Note ---
Event Note Event Note: AMY RESULTS- There is a 0.5 x 0.6 cm mobile echogenic target attached to the pacemaker lead which may represent thrombus vs vegetation.There is possible small thrombus at the base of the left atrial appendage. * scallop binder commercial litigation associate was consulted * Recommended starting IV heparin after discussing with neurologist. * Consulted Dr. Putnam, neurologist production planning manager. Discussed with Dr. Putnam about starting IV heparin as patient is status post TPA. Recommended to start IV heparin. * No need for IV heparin bolus * Guaiac was negative * Patient was started on IV heparin drip * Aspirin was stopped * Please discuss with the morning team again- commercial litigation associate and neurologist regarding continuation of IV heparin
[2017-02-21 22:37] VITALS: BP 118/70
[2017-02-22 03:04] LABS: PTT 103 SEC (25-37)
[2017-02-22 07:04] VITALS: BP 98/60
--- NOTE | 2017-02-22 07:57 | PN- Housestaff ---
ZACHERY KING,AGUSTÍN 02/22/17 0757: Subjective Follow-up For: cva s/p tpa Atrial appendage thrombus PFO Subjective: Seen and examined at bedside. Other than constipation, she does not endorse any acute complaint.She was able to ambulate to the bathroom (asisted), her dysarthia and right sided weakness has improved,residual facial droop still peresent,however improved. Last evening event of a AMY finding of atial thrombus and a PFO is noted, anticoagulation was initiated. Review of Systems Constitutional: Reports: see HPI. Objective Last 24 Hrs of Vital Signs/I&O Vital Signs Date Time Temp Pulse Resp B/P B/P Pulse O2 O2 Flow FiO2 Mean Ox Delivery Rate 02/22 0704 98.7 66 18 98/60 92 Room Air 02/21 2237 98.4 79 18 118/70 90 02/21 1940 95 Room Air Room Air 02/21 1456 97.6 81 18 118/70 92 Room Air 02/21 1249 Room Air Room Air 02/21 1022 Room Air Room Air Intake & Output 02/22 1600 02/22 0800 02/22 0000 Intake Total 302.8 511.2 Output Total 450 300 Balance -147.2 211.2 Intake, IV 102.8 71.2 Intake, Oral 200 440 Output, Urine 450 300 Patient 49.442 kg Weight Weight Chair scale Measurement Method Physical Exam General Appearance: Alert, Oriented X3, Cooperative Cardiovascular: Regular Rate, Normal S1, Normal S2 Assessment/Plan Assessment: This is a 66 year old woman with multiple medical problems significant for COPD, smoking, rheumatic fever, and pacemaker placement possible due to heart block brought in by ambulance for evaluation of acute onset right sided weakess, ipsilateral facial droop, and dysarthria. Received tpa 02/18 Problem List: -Acute CVA s/p tPa with right sided deficits. Pacemaker interrogation is unremarkable for any arrhythmias, CTA neck and carotid Doppler unremarkable for any significant stenosis from/atherosclerosis, no acute arrhythmias noted on telemetry. However AMY did show some finding of possible left atrial thrombus with PFO. -History of Pacemaker -History of COPD not on home oxygen -History of rheumatic fever -Current everyday smoker Plan S/p tpa on 02/18 2/2 to CVA. Marked improvement in focal deficit, patient able to ability to the bathroom with assistance, dysarthria has significantly improved residual right-sided upper extremity weakness and facial droop still present although improved from pre-TPA time. Patient is already medical optimized with aspirin and statin, counseled on smoking cessation and currently using nicotine patch. Patient started on production 75 mg by mouth twice a day in the setting of AMY findings of atrial thrombus with PFO. Choice of anticoagulation was based on his reversibility given that the patient will be in moderate to intense physical therapy for post stroke rehabilitation. She is to follow-up with yardage estimator on outpatient basis determining course of treatment with anticoagulation. Patient is medically stable and anticipated discharge tomorrow to short-term rehabilitation. Problem List: 1. CVA (cerebral vascular accident) 2. Atrial thrombosis Pain Ratin Pain Location: NONE Pain Goal: Remain pain free Pain Plan: PER PATHWAY Tomorrow's Labs & Rationales: CBC Consulting Request: Consulting Specialty: Neurology Consulting Physician: Dr. Guajardo Reason for Consult: KAM Pelletier 02/22/17 1055: Attending MD Review Statement Attending Statement Attending MD Statement: examined this patient, discuss w/resident/PA/[employer]ACH[employer]ES, agreed w/resident/PA/[employer]ACH[employer], discussed with family, reviewed EMR data (avail), discussed with nursing, discussed with case mgmt, reviewed images, amended to note Attending Assessment/Plan: 66 year old female smoker, h/o HTN, pacemaker for CHB presents with new right sided CVA. transferred from ICU to telemetry when she was diagnosed with acute stroke s/p tpa intervention in ER, with minimal right sided residual deficits. No evidence of AF by pacer interrogation AMY suggestive of possible small thrombus on pacer lead, PFO, ?small thrombus in the inferior portion of FAITH. Cardiology recommend anticoagualtion with pradaxa and d/wed patient/family. PT eval, tolerating PO fall precautions. Patient needs dsicharge disposition as per PT recommendations. anticipate d/c soon. Medically stable.
[2017-02-22 08:11] LABS: ABSOLUTE BASOPHIL COUNT 0 /CUMM (0.0-0.2); ABSOLUTE EOSINOPHIL COUNT 0.2 /CUMM (0.0-0.7); ABSOLUTE GRANULOCYTE CT 2.8 /CUMM (1.4-6.5); ABSOLUTE LYMPH COUNT 1.1 /CUMM (1.2-3.4); ABSOLUTE MONOCYTE COUNT 0.3 /CUMM (0.10-0.60); BASOPHIL % 0.5 % (0.0-2.0); EOSINOPHIL % 4.5 % (0-5); GRANULOCYTE % 62.6 % (42.2-75.2); HEMATOCRIT 38.8 % (37-47); MEAN CORPUSCULAR HGB 32.2 PG (27.0-31.0); MEAN CORPUSCULAR HGB CONC 33.5 G/DL (33.0-37.0); MEAN CORPUSCULAR VOLUME 96.2 FL (81.0-99.0); MEAN PLATELET VOLUME 8.9 FL (7.4-10.4); PLATELET COUNT 142 /CUMM (130-400); RBC DISTRIBUTION WIDTH 13.6 % (11.5-14.5); RED BLOOD CELL CT 4.03 /CUMM (4.20-5.40); WHITE BLOOD CELL COUNT 4.5 /CUMM (4.8-10.8)
--- NOTE | 2017-02-22 08:22 | NUR ---
Physical Therapy. Pt's AMY results reveal L atrial thrombus vs vegetation. Discussed w/ resident who confirms pt is not stable for PT at this time. PT will f/u as appropriate.
--- NOTE | 2017-02-22 08:34 | PN- Cardiology ---
Subjective Subjective: Patient is awake, no complaints. Objective Vital Signs and I&Os Vital Signs Date Time Temp Pulse Resp B/P B/P Pulse O2 O2 Flow FiO2 Mean Ox Delivery Rate 02/22 0704 98.7 66 18 98/60 92 Room Air 02/21 2237 98.4 79 18 118/70 90 02/21 1940 95 Room Air Room Air 02/21 1456 97.6 81 18 118/70 92 Room Air 02/21 1249 Room Air Room Air 02/21 1022 Room Air Room Air 02/21 0907 95 Room Air Intake & Output 02/22 1600 02/22 0800 02/22 0000 02/21 1600 02/21 0800 02/21 0000 Intake Total 302.8 511.2 240 440 Output Total 450 559 465 1802 600 Balance -147.2 211.2 -210 -1250 -160 Intake, IV 102.8 71.2 20 Intake, Oral 200 440 240 420 Output, Urine 450 911 637 8393 600 Patient 109 lb Weight Weight Chair scale Measurement Method Physical Exam: Neck-JVP normal no bruit Lungs-clear bilaterally Heart-S1S2 regular Abdomen-soft,not tender, BS+ Extr-no edema neuro-improving right UE weakness Current Medications: Current Medications Sig/Suzie Start time Last Medication Dose Route Stop Time Status Admin Acetaminophen 650 MG Q6P PRN 02/19 0045 AC PO Albuterol Sulfate 3 ML BID 02/20 2200 AC 02/21 INH 1939 Albuterol Sulfate 3 ML Q6 PRN 02/19 0030 AC 02/19 INH 0034 Aspirin 81 MG DAILY 02/20 1000 DC 02/21 PO 1208 Atorvastatin Calcium 40 MG 1700 02/20 1700 AC 02/21 PO 1950 Budesonide/ 2 PUF BID 02/19 1000 AC 02/21 Formoterol Fumarate INH 2239 Heparin Sodium 25,000 UNIT Q24H 02/21 1930 AC 02/21 (Porcine) IV 2000 Sodium Chloride 500 ML Patient Medication 1 ED .STK-MED ONE 02/21 143 NH Teaching ED 02/21 1431 Results Last 48 Hrs of Labs/Mics: Laboratory Tests 02/22/17 0650: Sodium Pending, Potassium Pending, Chloride Pending, Carbon Dioxide Pending, Anion Gap Pending, BUN Pending, Creatinine Pending, BUN/Creatinine Ratio Pending , CBC w Diff Pending, WBC Pending, RBC Pending, Hgb Pending, Hct Pending, MCV Pending, MCH Pending, RDW Pending, Plt Count Pending, MPV Pending, PUBS MCHC Pending 02/22/17 0210: APTT 103 *H 02/21/17 0715: Anion Gap 7, Estimated GFR > 60, BUN/Creatinine Ratio 20.0, CBC w Diff NO MAN DIFF REQ, RBC 4.02 L, MCV 96.8, MCH 32.0 H, RDW 13.4, MPV 8.6, Gran % 66.9, Lymphocytes % 22.3, Monocytes % 7.3, Eosinophils % 2.9, Basophils % 0.6, Absolute Granulocytes 3.7, Absolute Lymphocytes 1.2, Absolute Monocytes 0.4, Absolute Eosinophils 0.2, Absolute Basophils 0, PUBS MCHC 33.1 Assessment/Plan Assessment/Plan 66 year old female smoker, h/o HTN, pacemaker for CHB presents with new right sided CVA. s/p TPA. Neurologically improved. No evidenc of AF by pacer interrogation AMY results noted, I reviewd images and agree with finding of possible small thrombus on pacer lead, PFO, ?small thrombus in the inferior portion of FAITH Plan: continue statin ASA stopped stop heparin now start Pradaxa 75 mg po bid 2 hours after stopping heparin risk and benefit of anticoagulation discussed with the patient and daughter. Risk of recurrent thromboembolism high. I will start her on low dose Pradaxa in view of her low body weight and to decrease risk of hemorrhagic transformation of thalamic stroke. Pradaxa has reversal agent in case she develops bleed. Patient and daughter Mindy agrees with this plan. Keep in the hospital today for initiation of Pradaxa STR tomorrow if stable. Continue telemetry? No
--- NOTE | 2017-02-22 09:44 | NUR ---
Patient is put on hold due to findings during AMY. No occupational therapy today
[2017-02-22 14:39] VITALS: BP 102/60
[2017-02-22 22:22] VITALS: BP 98/60
[2017-02-23] MEDS ORDERED: DOCUSATE SODIU100 M3 PO (00:19)
[2017-02-23] MEDS ORDERED: ATORVASTATIN CA40 M1 PO (00:19)
[2017-02-23] MEDS ORDERED: PRADAXA75 M1 PO (00:19)
[2017-02-23] MEDS ORDERED: MIRALAX119 GM PO (00:19)
[2017-02-23] MEDS ORDERED: ASPIRIN81 M4 PO (00:24)
--- NOTE | 2017-02-23 00:29 | Patient Discharge Instructions ---
Discharge Instructions General Discharge Information Special Instructions: PLEASE FOLLOW UP WITH YOUR PRIMARY CARE WITHIN 1 WEEK PLEASE FOLLOW UP WITHIN 1 WEEK WITH YOUR PSYCHOLOGIST REGARDING ANY DOSE CHANGES AND TREATMENT LENGTH OF PRADAXA PLEASE SEEK MEDICAL ATTENTION IF YOU NOTICE ANY NEW OR WORSENING SPEECH IMPAIRMENT, FACIAL DROP, WEAKNESS, OR CONFUSION Diet Additional DIET Information: MECHANICAL SOFT WITH THIN LIQUIDS Acute Coronary Syndrome Inclusion Criteria At DC or during hospital stay patient has or had the following: Discharge Core Measures Meds if any: Prescribed or Continued at Discharge Meds if any: NOT Prescribed or Continued at Discharge Congestive Heart Failure Inclusion Criteria At DC or during hospital stay patient has or had the following: Discharge Core Measures Meds if any: Prescribed or Continued at Discharge Meds if any: NOT Prescribed or Continued at Discharge Cerebrovascular accident Inclusion Criteria At DC or during hospital stay patient has or had the following: CVA/TIA Diagnosis Yes Discharge Core Measures Meds if any: Prescribed or Continued at Discharge Meds if any: NOT Prescribed or Continued at Discharge Venous thromboembolism Discharge Core Measures - Per Current guidelines, there needs to be overlap - treatment for the first 5 days of Warfarin therapy. - If discharged on Warfarin prior to 5 days of - overlap therapy, the patient will need to be - assessed for post discharge needs including - *Post discharge parental anticoagulation - *Warfarin and/or parental anticoagulation education - *Follow up date to check INR post discharge Meds if any: Prescribed or Continued at Discharge Note: Overlap Therapy is Warfarin and Anticoagulant Meds if any: NOT Prescribed or Continued at Discharge
[2017-02-23 07:13] VITALS: BP 108/60
--- NOTE | 2017-02-23 07:21 | PN- Cardiology ---
Subjective Subjective: Patient feels unsteady on her feet when walking with PT Objective Vital Signs and I&Os Vital Signs Date Time Temp Pulse Resp B/P B/P Pulse O2 O2 Flow FiO2 Mean Ox Delivery Rate 02/23 0713 98.0 62 18 108/60 93 Room Air 02/22 2222 98.2 92 18 98/60 92 Room Air 02/22 1815 94 Room Air 02/22 1439 98.0 64 18 102/60 92 Room Air 02/22 1032 92 Room Air Room Air Intake & Output 02/23 0800 02/23 0000 02/22 1600 02/22 0800 02/22 0000 02/21 1600 Intake Total 500 600 302.8 511.2 240 Output Total 500 450 300 450 Balance 500 100 -147.2 211.2 -210 Intake, IV 0 102.8 71.2 Intake, Oral 500 600 200 440 240 Number 0 Bowel Movements Output, Urine 500 450 300 450 Patient 109 lb Weight Weight Chair scale Measurement Method Physical Exam: HEENT-PERRLA Neck-JVP normal, no bruit Lungs-clear bilaterally Heart-S1S2 regular, no murmur Abdomen-soft, not tender, bS+, no organomegaly Extr-no edema, 2+ pulses Neuro-persistent mild RUE weakness Current Medications: Current Medications Sig/Suzie Start time Last Medication Dose Route Stop Time Status Admin Acetaminophen 650 MG Q6P PRN 02/19 0045 AC PO Albuterol Sulfate 3 ML BID 02/20 2200 AC 02/22 INH 1815 Albuterol Sulfate 3 ML Q6 PRN 02/19 0030 AC 02/19 INH 0034 Aspirin 81 MG DAILY 02/23 1000 AC PO Atorvastatin Calcium 40 MG 1700 02/20 1700 AC 02/22 PO 1644 Budesonide/ 2 PUF BID 02/19 1000 AC 02/23 Formoterol Fumarate INH 0000 Dabigatran 75 MG BID 02/22 1100 AC 02/23 PO 0000 Docusate Sodium 100 MG BID 02/22 1107 AC 02/23 PO 0000 Heparin Sodium 25,000 UNIT Q24H 02/21 1930 DC 02/21 (Porcine) IV 2000 Sodium Chloride 500 ML Polyethylene Glycol 17 GM DAILY 02/22 1107 AC 02/22 PO 1245 Results Last 48 Hrs of Labs/Mics: Laboratory Tests 02/23/17 0650: CBC w Diff Pending, WBC Pending, RBC Pending, Hgb Pending, Hct Pending, MCV Pending, MCH Pending, RDW Pending, Plt Count Pending, MPV Pending, PUBS MCHC Pending 02/22/17 1000: APTT Cancelled 02/22/17 0650: Anion Gap 6, Estimated GFR > 60, BUN/Creatinine Ratio 17.1, CBC w Diff NO MAN DIFF REQ, RBC 4.03 L, MCV 96.2, MCH 32.2 H, RDW 13.6, MPV 8.9, Gran % 62.6, Lymphocytes % 25.3, Monocytes % 7.1, Eosinophils % 4.5, Basophils % 0.5, Absolute Granulocytes 2.8, Absolute Lymphocytes 1.1 L, Absolute Monocytes 0.3, Absolute Eosinophils 0.2, Absolute Basophils 0, PUBS MCHC 33.5 02/22/17 0210: APTT 103 *H Assessment/Plan Assessment/Plan 66 year old female smoker, h/o HTN, pacemaker for CHB presents with new right sided CVA. s/p TPA. Neurologically improved. No evidence of AF by pacer interrogation AMY results noted, I reviewd images and agree with finding of possible small thrombus on pacer lead, PFO, ?small thrombus in the inferior portion of FAITH Low BP may contribute to patient's unsteadiness Plan: increase oral fluid and food intake continue Pradaxa 75 mg po bid STR today f/u with me in 1-2 weeks Continue telemetry? No
--- NOTE | 2017-02-23 08:02 | PN- Housestaff ---
ZACHERY KING,AGUSTÍN 02/23/17 0801: Subjective Follow-up For: cva atrial thrombus Subjective: Seen and examined at bedside. No new or worsening focal deficit or any other acute complaints. vs STABLE. Review of Systems Constitutional: Reports: no symptoms. Objective Last 24 Hrs of Vital Signs/I&O Vital Signs Date Time Temp Pulse Resp B/P B/P Pulse O2 O2 Flow FiO2 Mean Ox Delivery Rate 02/23 1755 98.3 70 18 100/60 02/23 1443 98.3 70 18 100/60 96 Room Air 02/23 1019 95 Room Air 02/23 0713 98.0 62 18 108/60 93 Room Air Intake & Output 02/24 0800 02/24 0000 02/23 1600 Intake Total 680 Output Total 800 Balance -120 Intake, Oral 680 Output, Urine 800 Physical Exam General Appearance: Alert, Oriented X3, Cooperative Cardiovascular: Regular Rate, Normal S1, Normal S2, No Murmurs Lungs: Clear to Auscultation, Normal Air Movement Abdomen: Normal Bowel Sounds, Soft, No Tenderness Neurological: dsyarthic speech and facial droop (R), much improved before previous days. Strength on right UE 3-4/5 (improved), right lower extremity 4/5. No left sided deficits. Assessment/Plan Assessment: This is a 66 year old woman with multiple medical problems significant for COPD, smoking, rheumatic fever, and pacemaker placement possible due to heart block brought in by ambulance for evaluation of acute onset right sided weakess, ipsilateral facial droop, and dysarthria. Received tpa 02/18 Problem List: -Acute CVA s/p tPa with right sided deficits. Pacemaker interrogation is unremarkable for any arrhythmias, CTA neck and carotid Doppler unremarkable for any significant stenosis from/atherosclerosis, no acute arrhythmias noted on telemetry. However AMY did show some finding of possible left atrial thrombus with PFO. -History of Pacemaker -History of COPD not on home oxygen -History of rheumatic fever -Current everyday smoker Plan Continues to improve with dysarthia and right sided focal deficits. PT/OT session done by patient.reccomendation is for acute vs STR.. Conatcted neurology for reccomendation on wether to continue being off ASA, Dr Mahan confirmed that neuro wanted patient off ASA since she will be on Pradaxa for the atrial thrombus. Patients BP has been borderline low, BP med being held. Medically stable for discharge Problem List: 1. Atrial thrombus 2. CVA (cerebral vascular accident) Pain Ratin Pain Location: NONE Pain Goal: Remain pain free Pain Plan: PER [facility] Labs & Rationales: NONE Consulting Request: Consulting Specialty: Neurology Consulting Physician: Dr. Guajardo Reason for Consult: cva KAM LOBO 02/23/17 0847: Attending MD Review Statement Attending Statement Attending MD Statement: examined this patient, discuss w/resident/PA/ACUTE DIALYSIS REGISTERED NURSE, agreed w/resident/PA/ACUTE DIALYSIS REGISTERED NURSE, discussed with family, reviewed EMR data (avail), discussed with nursing, discussed with case mgmt, reviewed images, amended to note Attending Assessment/Plan: 66 year old female smoker, h/o HTN, pacemaker for CHB presents with new right sided CVA. transferred from ICU to telemetry when she was diagnosed with acute stroke s/p tpa intervention in ER, with minimal right sided residual deficits. No evidence of AF by pacer interrogation. AMY suggestive of possible small thrombus on pacer lead, PFO, ?small thrombus in the inferior portion of FAITH. Cardiology recommend anticoagualtion with pradaxa and d/wed patient/family. Check with Neurology on restarting ASA at d/c, PT eval , tolerating PO fall precautions. Patient needs dsicharge disposition as per PT recommendations to STR awaiting bed availability. anticipate d/c soon. Medically stable.
[2017-02-23 08:12] LABS: ABSOLUTE BASOPHIL COUNT 0 /CUMM (0.0-0.2); ABSOLUTE EOSINOPHIL COUNT 0.2 /CUMM (0.0-0.7); ABSOLUTE GRANULOCYTE CT 3.5 /CUMM (1.4-6.5); ABSOLUTE LYMPH COUNT 1.1 /CUMM (1.2-3.4); ABSOLUTE MONOCYTE COUNT 0.3 /CUMM (0.10-0.60); BASOPHIL % 0.4 % (0.0-2.0); EOSINOPHIL % 3.5 % (0-5); GRANULOCYTE % 68.8 % (42.2-75.2); HEMATOCRIT 39.9 % (37-47); MEAN CORPUSCULAR HGB 32.1 PG (27.0-31.0); MEAN CORPUSCULAR HGB CONC 33.4 G/DL (33.0-37.0); MEAN CORPUSCULAR VOLUME 96.3 FL (81.0-99.0); MEAN PLATELET VOLUME 8.5 FL (7.4-10.4); PLATELET COUNT 154 /CUMM (130-400); RBC DISTRIBUTION WIDTH 13.3 % (11.5-14.5); RED BLOOD CELL CT 4.14 /CUMM (4.20-5.40); WHITE BLOOD CELL COUNT 5.1 /CUMM (4.8-10.8)
[2017-02-23 14:43] VITALS: BP 100/60
[2017-02-23 17:55] VITALS: BP 100/60
--- NOTE | 2017-02-23 19:41 | NUR ---
PATIENT ASSESSED FOR SKIN ALTERATIONS, MEDICATION INSTRUCTIONS AND AFTERCARE PLAN. PATIENT ACKNOWLEDGES UNDERSTANDING OF PLAN. PATIENT'S ADULT DAUGHTER NOTIFIED VIA TELEPHONE [facility]. PATIENT TRANSPORTED VIA STRETCHER TO MAIN ENTRANCE, ESCORTED BY AMBULANCE STAFF, AND DISCHARGED WITHOUT INCIDENT.
== END 2017-02-23 18:10 | DRG 62 ==
LOC: ERH 19:02 → CRI 22:02 → 1NO 22:02 → ERHI 22:02 → 1NO 22:02 → ENRESERV 02-19 00:49 → CRI 02-19 01:44 → 1NO 02-20 16:06 → ENPENDDIS 02-23 16:01 → 1NO 02-23 18:10
PROVIDERS: Emergency Medicine; Internal Medicine; Internal Medicine Interventional Cardiology; Pediatrics; Student in an Organized Health Care Education/Training Program; ADMIT Internal Medicine
PROC: 3E03317 Introduction of Other Thrombolytic into Peripheral Vein, Percutaneous Approach (ICD-10-PCS; principal; 2017-02-18)
PROC: 4B02XSZ Measurement of Cardiac Pacemaker, External Approach (ICD-10-PCS; 2017-02-21)
PROC: B24BZZ4 Ultrasonography of Heart with Aorta, Transesophageal (ICD-10-PCS; 2017-02-21)
DX: I63.49 Cerebral infarction due to embolism of other cerebral artery (principal); G81.91 Hemiplegia, unspecified affecting right dominant side; I42.9 Cardiomyopathy, unspecified; J44.9 Chronic obstructive pulmonary disease, unspecified; Q21.1 Atrial septal defect; I10 Essential (primary) hypertension; F17.210 Nicotine dependence, cigarettes, uncomplicated; Z95.0 Presence of cardiac pacemaker; I51.3 Intracardiac thrombosis, not elsewhere classified; R29.810 Facial weakness; R47.01 Aphasia; R47.1 Dysarthria and anarthria; H53.2 Diplopia
CPT/HCPCS: 1NSP; CCU; ERO; 36415; 80307; 81001; 82436; 87086; 93005; 93010; 93306; 93308; 93321; 93325; 96105-GN; 96374; 97110-GO; 97112-GO; 97116-GO; 97161-GP; 97166-GO; 99291; J1644; J3490; J7040; J7060